=== PATIENT | female | born 1965 | race Caucasian/White ===

== ENCOUNTER 2017-05-16 15:43 | Inpatient (IN) | payer OTHER ==
[~2017-05-16] VITALS: Ht 162.6 cm; Wt 77.0 kg
--- NOTE | 2017-05-16 15:56 | ED CARDIAC/CP/PALPITATIONS ---
History of Present Illness General Chief Complaint: Dyspnea (COPD, CHF, Other) Stated Complaint: SOB O2 SAT 98 RA PULSE 150 Source: patient, family Exam Limitations: no limitations Vital Signs & Intake/Output Vital Signs & Intake/Output Vital Signs Date Time Temp Pulse Resp B/P B/P Pulse O2 O2 Flow FiO2 Mean Ox Delivery Rate 05/20 1411 98 Room Air Room Air 05/20 1406 80 05/20 0941 76 118/68 05/20 0804 84 05/20 0641 97.5 80 20 112/90 97 Room Air 05/19 2200 97.7 80 20 100/80 98 Room Air 05/19 2115 77 100/60 05/19 2019 99 Room Air 05/19 1800 78 ED Intake and Output 05/20 0000 05/19 1200 Intake Total 400 250 Output Total Balance 400 250 Intake, IV 0 Intake, Oral 400 250 Number 0 Bowel Movements Allergies Coded Allergies: NO KNOWN ALLERGIES (05/16/17) Triage Nurses Notes Reviewed? yes Onset: Gradual Duration: getting worse Timing: recent history Quality/Severity: moderate Location: substernal Radiation: jaw Activities at Onset: activity Aspirin Today: no aspirin today HPI: Patient is a 51-year-old female with past medical history of anxiety, chronic pain, depression, atrial fibrillation not on anticoagulation who presents emergency room stating that approximately 7 months ago patient was first diagnosed with atrial fibrillation at [facility] where she established rehabilitation caseworker Dr. RENE where she was prescribed diltiazem and told to take 81 mg of aspirin. Patient states that she did not like the way the diltiazem made her feel where she thought it made her symptoms of shortness of breath worse where for the past month she has discontinued this medication and patient also has been noncompliant with her aspirin. Patient was brought in by a month for 4 day history of dyspnea on exertion and worsening substernal chest heaviness Patient does admit to productive cough however she is in every day smoker Complains of jaw pain diaphoresis Denies any fevers leg swelling hemoptysis. Denies any illicit drug use denies any cocaine use patient does admit to drinking alcohol in which she took a shot of alcohol prior to arrival (NICHOLAS SCHULZ,ROSALES) Reconcile Medications Albuterol Sulfate 0.63 MG/3 ML VIAL.NEB BREATHING PROBLEMS (Reported) Alprazolam 1 MG TABLET ANXIETY (Reported) Apixaban (Eliquis) 5 MG TABLET 1 TAB PO BID AFIB Digoxin 250 MCG TABLET 1 TAB PO DAILY AFIB Diltiazem HCl (Diltiazem 12HR ER) 90 MG CAP.ER.12H 2 TAB PO BID AFIB Oxycodone HCl 15 MG TABLET 15 PAIN CONTROL (Reported) Prednisone 10 MG TABLET 1 TAB PO SI copd take 1tab on 05/21 (ALEX FRANK DO) Past History Medical History Any Pertinent Medical History? see below for history Cardiovascular: AFIB Psychiatric: anxiety, chronic pain disorder, depression Surgical History Surgical History: non-contributory Psychosocial History Who do you live with Spouse Services at Home None What is your primary language [place] Family History Hx Contributory? No (ROSALES VILLANUEVA) Review of Systems Review of Systems Constitutional: Reports: see HPI, chills. Denies: fever. EENTM: Reports: no symptoms. Respiratory: Reports: see HPI, cough, short of breath. Cardiovascular: Reports: see HPI, chest pain. GI: Reports: no symptoms. Genitourinary: Reports: no symptoms. Musculoskeletal: Reports: no symptoms. Skin: Reports: no symptoms. Neurological/Psychological: Reports: no symptoms. Hematologic/Endocrine: Reports: no symptoms. Immunologic/Allergic: Reports: no symptoms. All Other Systems: Reviewed and Negative (ROSALES VILLANUVEA) Physical Exam Physical Exam General Appearance: anxious Head: atraumatic Eyes: Bilateral: normal appearance. Ears, Nose, Throat: hearing grossly normal Respiratory: chest non-tender, no respiratory distress, wheezing Cardiovascular: tachycardia, irregularly irregular Gastrointestinal: normal bowel sounds, soft, non-tender Extremities: normal inspection, normal capillary refill, no edema Neurologic/Psych: no motor/sensory deficits, awake, alert, oriented x 3 Skin: intact, normal color, warm/dry Core Measures ACS in differential dx? Yes Severe Sepsis Present: No Septic Shock Present: No (ROSALES VILLANUEVA) Progress Differential Diagnosis: AMI, aortic dissection, atrial fibrillation, cholecystitis, CHF/pulm edema, costochondritis, hyperkalemia, hypovolemia, hyperthyroid, hyperventilation, intracranial hemorrhage, musculoskeletal pain, myocarditis, pancreatitis, pericarditis, pneumonia, pneumothorax, PSVT, pulmonary embolism, PUD/GERD, PVCs/PACs, respiratory failure, rib fracture, sepsis, unstable angina, V-fib/V-Tach, WPW syndrome Plan of Care: Orders Procedure Date/time Status Discharge Patient 05/20 UNK Active Patient on initial examination was noted to have rapid A. fib ekg monitor tech placed patient was given supplemental oxygen Cardizem was ordered IV. Dr. FRANK was aware Patient's initial blood pressure was stable, patient was given IV 10 mg of diltiazem with no response of 160-150 beats per minute. Patient then was given IV diltiazem 5 mg with no response and then an IV diltiazem another 5 mg with no response. Patient then was given IV diltiazem drip. Patient was administered prophylactic aspirin Dr. Smith consult on patient in the emergency room and advised to give heparinization to patient and also advised 20 mg IV of diltiazem and continue with 5 mL per hour of diltiazem drip. Patient also had audible wheezing on exam and patient will be treated for COPD however nebulizers were held due to significant tachycardia. CT scan was resulted showing no concerns of pulmonary embolism. After scan was resulted I also discussed continued tachycardia of 125 250 bpm to rehabilitation caseworker Dr. Smith who advised patient to be given IV Lopressor and if no better that a 15 mL per hour drip of Cardizem may be ordered for patient. Blood pressure still normal tensive. Patient also was given IV Ativan for concerns of alcohol dependency (NICHOLAS SCHULZ,ROSALES) Diagnostic Imaging: Viewed by Me: CT Scan. Radiology Impression: SEE COMMENTS Initial ED EKG: AFIB, 163 BPM IRREGULARLY IRREGULAR Comments: PATIENT: NISREEN ACEVEDO PRESENT AGE: 51 PATIENT ACCOUNT NO: [id number] : 63 LOCATION: [facility] ORDERING PHYSICIAN: ROSALES SCHULZ SERVICE DATE: 05/16/17 EXAM TYPE: CAT - CTA CHEST-PULMONARY EMBOLISM EXAMINATION: CT ANGIOGRAM OF THE CHEST WITH AND WITHOUT CONTRAST (CT PULMONARY ANGIOGRAM FOR PE) CLINICAL INFORMATION: Elevated d-dimer. COMPARISON: None. TECHNIQUE: Prior to contrast administration, noncontrast localization images were obtained. Subsequently, multidetector volumetric imaging was performed from the thoracic inlet to below the diaphragms following the administration of 89 mL Optiray 350 intravenous contrast. No contrast reaction reported. Sagittal, coronal, and MIP oblique sagittal reformatted images were obtained on the CT workstation, uploaded to PACS, and reviewed. Total exam dose-length product 383 mGy-cm. FINDINGS: QUALITY OF STUDY/CONTRAST BOLUS: Satisfactory. PULMONARY ARTERIES: Pulmonary arterial tree is well-opacified without filling defects to suggest pulmonary emboli. Main pulmonary artery is dilated up to 4.4 cm in cross-section at the level of the ascending aorta. This extends into the left main pulmonary artery, right pulmonary artery does not appear significantly dilated findings are indeterminate in etiology. Question asymmetric pulmonary hypertension? THORACIC AORTA: There is no dissection or aneurysm. LUNG:There is appearing pulmonary nodules are identified to suggest primary malignancy or metastatic disease. No focal infiltrates are seen. PLEURA: There are small bilateral pleural effusions. With subsegmental basilar atelectasis. MEDIASTINUM: There is a small node identified in the right hilum measuring 2.4 x 1.6 cm age and etiology indeterminate. In addition, there are scattered small mediastinal lymph nodes, some of which demonstrates some calcifications the largest in the subcarinal region measuring 11 mm AP dimension. These are nonspecific. A small amount of lymphoid tissue is identified in the left hilum. Findings are age and etiology indeterminate and could be related to previous granulomatous exposure given some of the calcifications associated near or within these nodes. The main pulmonary artery is dilated measuring 4cm in transverse dimension at the level of the ascending aorta. Findings suggest underlying pulmonary artery hypertension. Findings are somewhat asymmetrically involving the left pulmonary artery rather than right. CHEST WALL/AXILLA: Right breast is smaller than the left suggesting a previous lumpectomy and a history of breast cancer. There is no axillary adenopathy. OSSEOUS STRUCTURES: No aggressive appearing osseous lesions are identified to suggest metastatic disease. UPPER ABDOMEN: Unremarkable. IMPRESSION: 1. No evidence of pulmonary embolism. 2. There is an enlarged right hilar lymph node with other shotty under 1 cm short axis dimension mediastinal and left hilar nodes. Other smaller shotty nodes contain calcifications suggesting previous granulomatous exposure. 3. Small bilateral pleural effusions 4. Fusiform dilatation of the main pulmonary artery extending into the left main is etiology indeterminate. Echocardiogram is recommended on a nonurgent basis to further evaluate. 5. Probable post lumpectomy changes right breast, question history of breast cancer? VTE: Negative.. DICTATED BY: TATI MARTINEZ MD DATE/TIME DICTATED:05/16/171925 BAR TURNER:LEANNA DATE/TIME TRANSCRIBED:05/16/171925 (ROSALES VILLANUEVA) Departure Departure Disposition: STILL A PATIENT Condition: Critical Clinical Impression Primary Impression: Rapid atrial fibrillation Secondary Impressions: Chest pain, COPD (chronic obstructive pulmonary disease) Referrals: PATIENT HAS NO PRIMARY CARE DR (PCP/Family) Departure Forms: Customer Survey General Discharge Information Admission Note Spoke With: ALMA BARTHOLOMEW MD Documentation of Exam: Documentation of any treatments & extenuating circumstances including Concerns Regarding Discharge (functional status, medication knowledge or non-compliance, living conditions, etc.) that warrant an admission rather than observation: [ Discussed patient with who agrees with telemetry admission for concerns of rapid atrial fibrillation and COPD in which patient requires cardiology consultation, telemetry monitoring, IV diltiazem, IV steroids, POSSIBLE ECHO/HAN. Outpatient treatment due to critical findings of significant tachycardia and atrial fibrillation would be medically harmful] (ROSALES VILLANUEVA) Departure Prescriptions: Current Visit Scripts Prednisone 1 TAB PO SI #1 TAB take 1tab on 05/21 Digoxin 1 TAB PO DAILY #30 TAB Apixaban (Eliquis) 1 TAB PO BID #60 TAB Diltiazem HCl (Diltiazem 12HR ER) 2 TAB PO BID #120 PA/PUMPER GAGER APPRENTICE Co-Sign Statement Statement: ED Attending supervision documentation- [X] I saw and evaluated the patient. I have also reviewed all the pertinent lab results and diagnostic results. I agree with the findings and the plan of care as documented in the PA's/PUMPER GAGER APPRENTICE's documentation. [] I have reviewed the ED Record and agree with the PA's/PUMPER GAGER APPRENTICE's documentation. [] Additions or exceptions (if any) to the PAs/PUMPER GAGER APPRENTICE's note and plan are summarized below: [] (ALEX FRANK DO) Critical Care Note Critical Care Note Critical Care Time: 75-104 min (ROSALES VILLANUEVA) Admission Note Spoke With: ALMA BARTHOLOMEW MD Documentation of Exam: Documentation of any treatments & extenuating circumstances including Concerns Regarding Discharge (functional status, medication knowledge or non-compliance, living conditions, etc.) that warrant an admission rather than observation: [ Discussed patient with who agrees with telemetry admission for concerns of rapid atrial fibrillation and COPD in which patient requires cardiology consultation, telemetry monitoring, IV diltiazem, IV steroids, POSSIBLE ECHO/HAN. Outpatient treatment due to critical findings of significant tachycardia and atrial fibrillation would be medically harmful] Critical Care Note Critical Care Note Critical Care Time: 75-104 min
--- NOTE | 2017-05-16 16:00 | NUR ---
RECEIVED 51 YO FEMALE C/O WORSENING SHORTNESS OF BREATH X 4 DAYS WITH CHEST PRESSURE AND NECK PAIN. EKG DONE PRIOR TO TRIAGE. EKG SHOWS AIB WITH RVR, HR 163. PT WITH HX OF AFIB AND COPD.
--- NOTE | 2017-05-16 16:19 | NUR ---
PT TO ROOM17 BY BERNARDO, ZEUS PETERSON AND MD MONIKA TO BEDSIDE FOR PT EVAL. IV EST, PT MEDICATED WITH CARDIZEM 10MG IV PER ORDER. BP 161/93, HR 160'S. BLOOD DRAWN AND SENT TO LAB-[facility],MICHELLE [facility].
[2017-05-16 16:24] LABS: ABSOLUTE BASOPHIL COUNT 0.1 /CUMM (0.0-0.2); ABSOLUTE EOSINOPHIL COUNT 0.2 /CUMM (0.0-0.7); ABSOLUTE GRANULOCYTE CT 5.5 /CUMM (1.4-6.5); ABSOLUTE MONOCYTE COUNT 1.1 /CUMM (0.10-0.60); BASOPHIL % 0.8 % (0.0-2.0); GRANULOCYTE % 62.3 % (42.2-75.2); HEMATOCRIT 48.6 % (37-47); MEAN CORPUSCULAR HGB 31.2 PG (27.0-31.0); MEAN CORPUSCULAR VOLUME 94.7 FL (81.0-99.0); MEAN PLATELET VOLUME 8.4 FL (7.4-10.4); PLATELET COUNT 211 /CUMM (130-400); RBC DISTRIBUTION WIDTH 14.3 % (11.5-14.5); RED BLOOD CELL CT 5.13 /CUMM (4.20-5.40); WHITE BLOOD CELL COUNT 8.8 /CUMM (4.8-10.8)
--- NOTE | 2017-05-16 16:34 | NUR ---
2 DOSES OF CARDIZEM 5MG ADMINISTERED WITH SLIGHT HR IMPROVEMENT 140'S-150'S. BP 142/60. CARDIZEM DRIP 125MG/125ML INITIATED AT 5MG/HR PER EMAR. PT MEDICATED WITH ASPIRINE AND SOLUMEDROL PER EMAR. WCTM.
[2017-05-16 16:35] LABS: PT 11.5 SEC (9.4-12.5); PTT 29 SEC (25-37)
--- NOTE | 2017-05-16 16:47 | History & Physical ---
BOB POWELL MD 05/16/17 1640: General Information and HPI MD Statement: I have seen and personally examined NISREEN ACEVEDO and documented this H&P. The patient is a 51 year old F who presented with a patient stated chief complaint of []. Source of Information: patient, old records Exam Limitations: no limitations History of Present Illness: Patient is a 51-year-old female presented with chief complaints of gradually progressive shortness of breath along with chest pain since last 4 days. Past medical history - Atrial fibrillation not on any anticoagulation (7 months) -Non compliant with medication Chronic smoker Chronic pain disorder Anxiety Depression Past History Travel History Traveled to [place] past 21 day No Medical History Neurological: NONE Cardiovascular: AFIB Respiratory: asthma, COPD, emphysema Gastrointestinal: GERD Hepatic: NONE Renal: NONE Musculoskeletal: NONE Psychiatric: anxiety, chronic pain disorder, depression Endocrine: NONE Blood Disorders: NONE Cancer(s): NONE Surgical History Surgical History: non-contributory Past Family/Social History Psychosocial History Services at Home: None Assessment/Plan Assessment: Vital signs at the time of admission -temperature 97.8, pulse was 60, respiratory rate 24, blood pressure 148/71, SPO2 97% on room air In the emergency department she was found to have atrial fibrillation with rapid ventricular rate and heart rate was 163. So she was given Cardizem 10 milligrams , which did not show any response so she was started on Cardizem drip. QIANA GRIFFIN 05/16/17 1802: General Information and HPI Allergies/Medications Allergies: Coded Allergies: NO KNOWN ALLERGIES (05/16/17)
--- NOTE | 2017-05-16 17:32 | NUR ---
PT EVALUATED BY . CARDIZEM 20MG IV ADMINISTERED PER ORDER.
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
--- NOTE | 2017-05-16 18:07 | NUR ---
HEPARIN BOLUS ADMINISTERED PER EMAR. HEPARIN DRIP [id number] IN 500ML 1/2NS INITIATED AT 26ML/HR. DRIP VERIFIED BY ELISA ROBERTS. VSS.
--- NOTE | 2017-05-16 18:16 | NUR ---
PT MEDICATED WITH ATIVAN IV NOW FOR ANXIETY
--- NOTE | 2017-05-16 18:18 | NUR ---
BREATHING TX HELD DUE TO HR OF 110-140, PER ROSALES PETERSON
--- NOTE | 2017-05-16 19:22 | NUR ---
PT TO AND FROM CAT SCAN BY STRETCHER. HR 100-120'S. BP 119/69. RESP CALLED FOR VERA PER ZEUS PETERSON ORDER. FOOD PROVIDED TO PT.
--- NOTE | 2017-05-16 20:27 | CT SCAN REPORT ---
EXAMINATION: CT ANGIOGRAM OF THE CHEST WITH AND WITHOUT CONTRAST (CT PULMONARY ANGIOGRAM FOR PE) CLINICAL INFORMATION: Elevated d-dimer. COMPARISON: None. TECHNIQUE: Prior to contrast administration, noncontrast localization images were obtained. Subsequently, multidetector volumetric imaging was performed from the thoracic inlet to below the diaphragms following the administration of 89 mL Optiray 350 intravenous contrast. No contrast reaction reported. Sagittal, coronal, and MIP oblique sagittal reformatted images were obtained on the CT workstation, uploaded to PACS, and reviewed. Total exam dose-length product 383 mGy-cm. FINDINGS: QUALITY OF STUDY/CONTRAST BOLUS: Satisfactory. PULMONARY ARTERIES: Pulmonary arterial tree is well-opacified without filling defects to suggest pulmonary emboli. Main pulmonary artery is dilated up to 4.4 cm in cross-section at the level of the ascending aorta. This extends into the left main pulmonary artery, right pulmonary artery does not appear significantly dilated findings are indeterminate in etiology. Question asymmetric pulmonary hypertension? THORACIC AORTA: There is no dissection or aneurysm. LUNG:There is appearing pulmonary nodules are identified to suggest primary malignancy or metastatic disease. No focal infiltrates are seen. PLEURA: There are small bilateral pleural effusions. With subsegmental basilar atelectasis. MEDIASTINUM: There is a small node identified in the right hilum measuring 2.4 x 1.6 cm age and etiology indeterminate. In addition, there are scattered small mediastinal lymph nodes, some of which demonstrates some calcifications the largest in the subcarinal region measuring 11 mm AP dimension. These are nonspecific. A small amount of lymphoid tissue is identified in the left hilum. Findings are age and etiology indeterminate and could be related to previous granulomatous exposure given some of the calcifications associated near or within these nodes. The main pulmonary artery is dilated measuring 4cm in transverse dimension at the level of the ascending aorta. Findings suggest underlying pulmonary artery hypertension. Findings are somewhat asymmetrically involving the left pulmonary artery rather than right. CHEST WALL/AXILLA: Right breast is smaller than the left suggesting a previous lumpectomy and a history of breast cancer. There is no axillary adenopathy. OSSEOUS STRUCTURES: No aggressive appearing osseous lesions are identified to suggest metastatic disease. UPPER ABDOMEN: Unremarkable. IMPRESSION: 1. No evidence of pulmonary embolism. 2. There is an enlarged right hilar lymph node with other shotty under 1 cm short axis dimension mediastinal and left hilar nodes. Other smaller shotty nodes contain calcifications suggesting previous granulomatous exposure. 3. Small bilateral pleural effusions 4. Fusiform dilatation of the main pulmonary artery extending into the left main is etiology indeterminate. Echocardiogram is recommended on a nonurgent basis to further evaluate. 5. Probable post lumpectomy changes right breast, question history of breast cancer? VTE: Negative..
--- NOTE | 2017-05-16 21:11 | NUR ---
PT RESTING WELL IN RM. FAMILY PRESENT AT BEDSIDE. DRIPS INFUSING ORDERED W/O ADVERSE REACTION. VITAL SIGNS STABLE. CONTINUOUS MONITORING MAINTAINED.
--- NOTE | 2017-05-16 21:53 | NUR ---
PT MEDICATED WITH OXYCODONE PER EMAR FOR CHRONIC PAIN.
--- NOTE | 2017-05-16 21:54 | NUR ---
CARDIZEM DRIP TITRATED TO 7ML/RH PER ZEUS PETERSON ORDER. PT REMAINES AFIB, HR 110-140'S.
[2017-05-16 22:20] VITALS: BP 128/91
--- NOTE | 2017-05-16 22:21 | NUR ---
LOPRESSOR ADMINISTERED PER EMAR, HR 130-140'S BP 128/91 HOUSE STAFF AT BEDSIDE FOR PT EVAL.
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
[2017-05-16] MEDS ORDERED: ALPRAZOLAM1 M2 (23:00)
[2017-05-16] MEDS ORDERED: OXYCODONE HCL15 M1 (23:00)
[2017-05-16] MEDS ORDERED: ALBUTEROL0.63 MG/1 (23:01)
--- NOTE | 2017-05-16 23:05 | NUR ---
BED 175
--- NOTE | 2017-05-16 23:57 | NUR ---
REPORT GIVEN TO ELISA GOLDMAN.
--- NOTE | 2017-05-17 | NUR ---
[facility] CALLED FOR MEDICATIONS
--- NOTE | 2017-05-17 00:30 | RADIOLOGY REPORT ---
EXAMINATION: XR CHEST CLINICAL INFORMATION: Congestive heart failure. Pneumonia. Shortness of breath. COMPARISON: CT of chest today. TECHNIQUE: Chest portable single view AP. 11:18 PM FINDINGS: No acute abnormality. Lungs are clear. No pulmonary vascular congestion or pleural effusion. Cardiac size not optimally assessed on AP portable chest x-ray. IMPRESSION: No acute abnormality.
[2017-05-17 01:52] VITALS: BP 106/80
[2017-05-17 02:02] LABS: PTT 105 SEC (25-37)
--- NOTE | 2017-05-17 04:00 | NUR ---
LATE ENTRY PT ADMITTED FROM ER VIA STRETCHER . ORIENTED TO ROOM CALL TORO ETC. A/OX 3. 2L NC. AFIB ON THE MONITOR. HEPARIN GTT/CARIDIZEM GTT RUNNING ORDERED. HEPARIN GTT STOPPED PER PROTOCOL, CRITICAL LAB RESULT PTT-105. RATE DECREASED ORDERED. NEXT PTT 0900. WILL CONTINUE TO MONITOR.
--- NOTE | 2017-05-17 06:06 | Admission Certification ---
Admission Certification Certification Statement - As attending physician, I certify that at the time of - admission, based on clinical presentation, severity of - symptoms, need for further diagnostic testing and - therapeutic interventions, and risk of adverse outcomes - without in-hospital treatment, in my clinical assessment, - this patient requires an acute hospital stay for a minimum - of two nights or longer. I have also considered psychsocial - factors such as support system, advanced age, financial - issues, cognitive issues, and failed out-patient treatments, - past re-admission history, safety of patient, and lack of - compliance as applicable. Specific rationale supporting this admission is: A. fib with RVR, COPD exacerbation
[2017-05-17 08:00] VITALS: BP 100/80
--- NOTE | 2017-05-17 08:38 | PN- Housestaff ---
ROBERTO PAREDES 05/17/17 0838: Subjective Follow-up For: A-FIB WITH RVR POSSIBLE COPD EXACERBATION CHEST PAIN Complaints: pain scale (0-10) Tele-Events Since Last Visit: PATIENT IS IN A-FIB, RATE 115-133 NO ACUTE EVENTS OVERNIGHT Subjective: PATIENT IS ALERT, AWAKE, ORIENTED X 3. PATIENT REPORTED SOB X 4 DAYS, CHEST DISCOMFORT IN ED. NO ACUTE EVENTS OVERNIGHT. DENIES ANY CHEST PAIN, SOB, PALPITATIONS, DIAPHORESIS. Review of Systems Constitutional: Denies: chills, diaphoresis, fever. Objective Last 24 Hrs of Vital Signs/I&O Vital Signs Date Time Temp Pulse Resp B/P B/P Pulse O2 O2 Flow FiO2 Mean Ox Delivery Rate 05/17 1014 99 Room Air 05/17 0800 97.6 130 20 100/80 98 Room Air 05/17 0152 98.6 125 20 106/80 97 Nasal Cannula 05/17 0049 Nasal 2.0L Cannula 05/16 2313 120 18 117/82 98 Nasal 2.0L Cannula 05/16 2245 130 125/86 05/16 2221 97.5 141 20 125/89 05/16 2221 140 18 128/91 97 Nasal 2.0L Cannula 05/16 2220 97.6 140 18 128/91 05/16 2108 97.5 141 20 125/89 97 Nasal 2.0L Cannula 05/16 1923 110 18 119/69 97 Nasal 2.0L Cannula 05/16 1808 135 18 114/70 97 Nasal 2.0L Cannula 05/16 1730 97.3 148 18 142/60 05/16 1634 148 18 142/60 99 Nasal 2.0L Cannula 05/16 1632 97.3 158 18 142/60 05/16 1630 97.3 162 18 161/93 05/16 1628 162 18 161/93 98 Nasal 2.0L Cannula 05/16 1625 99 Nasal 2.0L Cannula 05/16 1619 97.3 162 18 161/93 05/16 1558 97.3 160 24 148/71 97 Room Air Intake & Output 05/17 1600 05/17 0800 05/17 0000 Intake Total 380 Output Total 400 Balance -20 Intake, IV 260 Intake, Oral 120 Output, Urine 400 Patient 170 lb Weight Physical Exam General Appearance: Alert, Oriented X3, Cooperative, No Acute Distress Skin: No Rashes HEENT: Atraumatic Neck: No JVD Lymphatic: Cervical nl Cardiovascular: Normal S1, Normal S2, IRREGULAR RATE Lungs: Normal Air Movement Abdomen: Normal Bowel Sounds, Soft, No Tenderness Extremities: No Clubbing, No Cyanosis, No Edema Vascular: Pulses Symmetrical Current Medications: Current Medications Sig/Ekta Start time Last Medication Dose Route Stop Time Status Admin Acetaminophen 650 MG Q6P PRN 05/16 2300 AC PO Albuterol Sulfate 3 ML Q4P PRN 05/17 1015 AC 05/17 INH 1013 Albuterol Sulfate 3 ML ONCE ONE 05/16 1615 DC 05/16 INH 05/16 1616 2016 Alprazolam 0.5 MG ONCE ONE 05/17 0445 DC 05/17 PO 05/17 0446 0455 Aspirin 0 .STK-MED ONE 05/16 1647 DC PO Aspirin 325 MG ONCE ONE 05/16 1615 DC 05/16 PO 05/16 1616 1634 Azithromycin 250 MG DAILY 05/16 2330 AC 05/17 PO 0124 Diltiazem HCl 120 MG BID 05/16 2300 AC 05/17 PO 0820 Diltiazem HCl 0 .STK-MED ONE 05/16 1728 DC .ROUTE Diltiazem HCl 20 MG ONCE ONE 05/16 1715 DC 05/16 IV PUSH 05/16 1716 1730 Diltiazem HCl 0 .STK-MED ONE 05/16 1640 DC IV Diltiazem HCl 5 MG ONCE ONE 05/16 1630 DC 05/16 IV PUSH 05/16 1631 1632 Diltiazem HCl 5 MG ONCE ONE 05/16 1630 DC 05/16 IV PUSH 05/16 1631 1630 Diltiazem HCl 125 MG Q12H 05/16 1630 CAN Sodium Chloride 100 ML IV Diltiazem HCl 125 MG Q24H 05/16 1630 AC 05/16 Sodium Chloride 100 ML IV 1634 Diltiazem HCl 0 .STK-MED ONE 05/16 1621 DC .ROUTE Diltiazem HCl 10 MG ONCE ONE 05/16 1615 DC 05/16 IV PUSH 05/16 1616 1619 Furosemide 0 .STK-MED ONE 05/16 2340 DC IV Furosemide 20 MG ONCE ONE 05/16 2300 DC 05/16 IV 05/16 2301 2342 Heparin Sodium 0 .STK-MED ONE 05/16 1728 DC (Porcine) .ROUTE Heparin Sodium 5,000 UNIT ONCE ONE 05/16 1715 DC 05/16 (Porcine) IV 05/16 1716 1805 Heparin Sodium 25,000 UNIT Q24H 05/16 1715 AC 05/16 (Porcine) IV 1805 Sodium Chloride 500 ML Ibuprofen 600 MG .STK-MED ONE 05/17 0125 DC PO 05/17 0126 Ibuprofen 600 MG Q6P PRN 05/16 2300 AC 05/17 PO 0124 Ipratropium [place] 2.5 ML ONCE ONE 05/16 1615 DC 05/16 INH 05/16 1616 2015 Lorazepam 0 .STK-MED ONE 05/16 2341 DC .ROUTE Lorazepam 0 Q1P PRN 05/16 2300 AC IV Lorazepam 1 MG ONCE ONE 05/16 2300 DC 05/16 IV 05/16 2301 2342 Lorazepam 0 .STK-MED ONE 05/16 1817 DC .ROUTE Lorazepam 1 MG ONCE ONE 05/16 1800 DC 05/16 IV 05/16 1801 1816 Methylprednisolone 40 MG Q12 05/16 2330 AC 05/17 IV 0124 Methylprednisolone 0 .STK-MED ONE 05/16 1648 DC .ROUTE Methylprednisolone 125 MG ONCE ONE 05/16 1615 DC 05/16 IV 05/16 1616 1634 Metoprolol Tartrate 0 .STK-MED ONE 05/16 2231 DC IV Metoprolol Tartrate 5 MG ONCE ONE 05/16 2200 DC 05/16 IV 05/16 2201 2221 Metoprolol Tartrate 25 MG ONCE ONE 05/16 1630 CAN PO 05/16 1631 Oxycodone HCl 15 MG Q8P PRN 05/16 2300 AC 05/17 PO 0630 Oxycodone HCl 15 MG ONCE ONE 05/16 2200 DC 05/16 PO 05/16 2201 2153 Oxycodone HCl 0 .STK-MED ONE 05/16 2156 DC PO Oxycodone HCl 0 .STK-MED ONE 05/16 2155 DC PO Thiamine HCl 100 MG ONCE ONE 05/17 0230 DC 05/17 Sodium Chloride 100 ML IV 05/17 0259 0349 Last 24 Hrs of Lab/Alfredito Results Last 24 Hrs of Labs/Mics: Laboratory Tests 05/17/17 0950: APTT Pending 05/17/17 0840: Anion Gap 12, Estimated GFR > 60, BUN/Creatinine Ratio 25.0, Troponin I < 0.01, CBC w Diff NO MAN DIFF REQ, RBC 4.79, MCV 95.8, MCH 31.5 H, RDW 14.7 H, MPV 9.1, Gran % 88.4 H, Lymphocytes % 8.2 L, Monocytes % 3.2, Eosinophils % 0.1, Basophils % 0.1, Absolute Granulocytes 10.0 H, Absolute Lymphocytes 0.9 L, Absolute Monocytes 0.4, Absolute Eosinophils 0, Absolute Basophils 0, PUBS MCHC 32.9 L 05/17/17 0130: Troponin I < 0.01 05/17/17 0040: APTT 105 *H 05/16/17 1909: Lactic Acid Cancelled 05/16/17 1610: D-Dimer High Sensitivty Cancelled 05/16/17 1610: Anion Gap 11, Estimated GFR > 60, BUN/Creatinine Ratio 18.3, Glucose 108 H, Lactic Acid 1.9, Calcium 9.5, Total Bilirubin 1.7 H, AST 51 H, ALT 63 H, Alkaline Phosphatase 83, Troponin I < 0.01, Hlo-U-Npikdcufdgt Pept 3390 H, Total Protein 6.5, Albumin 4.1, Globulin 2.4, Albumin/Globulin Ratio 1.7, TSH 2.160, Thyroxine (T4) 6.9, PT 11.5, INR 1.10, APTT 29, D-Dimer High Sensitivty 469 H, CBC w Diff NO MAN DIFF REQ, RBC 5.13, MCV 94.7, MCH 31.2 H, RDW 14.3, MPV 8.4, Gran % 62.3, Lymphocytes % 22.4, Monocytes % 12.5 H, Eosinophils % 2.0 , Basophils % 0.8, Absolute Granulocytes 5.5, Absolute Lymphocytes 2.0, Absolute Monocytes 1.1 H, Absolute Eosinophils 0.2, Absolute Basophils 0.1, PUBS MCHC 33.0, Serum Alcohol 70.0 Assessment/Plan Assessment: MS. LIU IS A 51YO F WITH PMH OF A-FIB, COPD, ANXIETY. CURRENTLY NONCOMPLIANT WITH CARDIZEM AND ASA. PRESENTED TO ED WITH SOB X 4 DAYS AND CHEST DISCOMFORT. #1. A-FIB Patient was diagnosed with A-FIB in 2016. She was sent home on cardiazem and ASA. Patient was noncompliant with Cardizem because she felt it exacerbated her SOB. She is currently being admitted for SOB. ECG in ED showed A-FIB with RVR- 160. Received IV Cardizem and IVP Metoprolol, HR came down to 130. * ADMITTED TO TELE FOR FURTHER MGMT OF A-FIB * ON TELE MONITORING, MONITOR SHOWING A-FIB R-130 * ON CARDIZEM DRIP, will CONTINUE CARDIZEM DRIP * GOAL HR 100-110 * PLANNING TO START ORAL CARDIZEM 120 BID * ON IV HEP DRIP for VTE PPX * WILL CHECK W COMMERCIAL ILLUSTRATOR ABOUT STARTING NEW AC * DR. Adriana LÓPEZ WAS INFORMED, WILL F/U ECHO #2 Chest pain ACS and also pulmonary embolism in the differential. CT was negative. Serial electrocardiograms and cardiac enzymes negative. Aspirin, and a beta john administered. #3 ? COPD No formal diagnosis of COPD ever made. History of smoking. Physical findings, and history of smoking likely indicate that the patient may have COPD exacerbation at this time. 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 * Ativan PRN. * Checked urine toxicology. #5. Pain management * Continue home dose of oxycodone. #6. DVT prophylaxis * IV heparin #7. Pain lower extremity * Given history of smoking, peripheral vascular disease is not completely ruled out. Outpatient evaluation with a vascular surgeon could be obtained. Problem List: 1. Rapid atrial fibrillation 2. Chest pain Pain Ratin Pain Location: N/A Pain Goal: Remain pain free Pain Plan: TYLENOL Tomorrow's Labs & Rationales: NONE
[2017-05-17 09:08] LABS: ABSOLUTE BASOPHIL COUNT 0 /CUMM (0.0-0.2); ABSOLUTE EOSINOPHIL COUNT 0 /CUMM (0.0-0.7); ABSOLUTE LYMPH COUNT 0.9 /CUMM (1.2-3.4); ABSOLUTE MONOCYTE COUNT 0.4 /CUMM (0.10-0.60); BASOPHIL % 0.1 % (0.0-2.0); EOSINOPHIL % 0.1 % (0-5); GRANULOCYTE % 88.4 % (42.2-75.2); HEMATOCRIT 45.9 % (37-47); MEAN CORPUSCULAR HGB 31.5 PG (27.0-31.0); MEAN CORPUSCULAR HGB CONC 32.9 G/DL (33.0-37.0); MEAN CORPUSCULAR VOLUME 95.8 FL (81.0-99.0); MEAN PLATELET VOLUME 9.1 FL (7.4-10.4); PLATELET COUNT 236 /CUMM (130-400); RBC DISTRIBUTION WIDTH 14.7 % (11.5-14.5); RED BLOOD CELL CT 4.79 /CUMM (4.20-5.40)
[2017-05-17 10:01] LABS: WHITE BLOOD CELL COUNT 11.4 /CUMM (4.8-10.8)
--- NOTE | 2017-05-17 10:29 | PN- Att Addend ---
Attending Addendum Attending Brief Note Patient seen and examined. Plan of care discussed with the medical team and the patient. Available lab work and radiology test reports were reviewed. Patient' s boyfriend was at the bedside. Patient appears anxious but denies any fever or chills. She continues to have mild pressure in the chest bilaterally. teletypesetter monitor shows heart rate of 144 with A. fib. Vital Signs Date Time Temp Pulse Resp B/P B/P Pulse O2 O2 Flow FiO2 Mean Ox Delivery Rate 05/17 1016 Room Air 05/17 1014 99 Room Air 05/17 0800 97.6 130 20 100/80 98 Room Air 05/17 0152 98.6 125 20 106/80 97 Nasal Cannula 05/17 0049 Nasal 2.0L Cannula 05/16 2313 120 18 117/82 98 Nasal 2.0L Cannula 05/16 2245 130 125/86 05/16 2221 97.5 141 20 125/89 05/16 2221 140 18 128/91 97 Nasal 2.0L Cannula 05/16 2220 97.6 140 18 128/91 05/16 2108 97.5 141 20 125/89 97 Nasal 2.0L Cannula 05/16 1923 110 18 119/69 97 Nasal 2.0L Cannula 05/16 1808 135 18 114/70 97 Nasal 2.0L Cannula 05/16 1730 97.3 148 18 142/60 05/16 1634 148 18 142/60 99 Nasal 2.0L Cannula 05/16 1632 97.3 158 18 142/60 05/16 1630 97.3 162 18 161/93 05/16 1628 162 18 161/93 98 Nasal 2.0L Cannula 05/16 1625 99 Nasal 2.0L Cannula 05/16 1619 97.3 162 18 161/93 05/16 1558 97.3 160 24 148/71 97 Room Air Intake & Output 05/17 1600 05/17 0800 05/17 0000 Intake Total 380 Output Total 400 Balance -20 Intake, IV 260 Intake, Oral 120 Output, Urine 400 Patient 170 lb Weight Exam: General: Patient awake alert oriented without any distress but anxious CVS: S1 plus S2 without any murmur or gallops Chest: Few scattered crepitation without any wheeze. There is no respiratory distress. 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 alert oriented without any focal neuro deficit and follows command appropriately Extremities: No edema; no clubbing or cyanosis noted Laboratory Tests 05/17 05/17 05/17 0950 0840 0130 Chemistry Sodium (137 - 145 mmol/L) 137 Potassium (3.5 - 5.1 mmol/L) 4.6 Chloride (98 - 107 mmol/L) 98 Carbon Dioxide (22 - 30 mmol/L) 27 Anion Gap (5 - 16) 12 BUN (7 - 17 mg/dL) 15 Creatinine (0.5 - 1.0 mg/dL) 0.6 Estimated GFR (>60 ml/min) > 60 BUN/Creatinine Ratio (7 - 25 %) 25.0 Troponin I (< 0.11 ng/ml) < 0.01 < 0.01 Coagulation APTT Pending Hematology CBC w Diff NO MAN DIFF REQ WBC (4.8 - 10.8 /CUMM) 11.4 H RBC (4.20 - 5.40 /CUMM) 4.79 Hgb (12.0 - 16.0 G/DL) 15.1 Hct (37 - 47 %) 45.9 MCV (81.0 - 99.0 FL) 95.8 MCH (27.0 - 31.0 PG) 31.5 H RDW (11.5 - 14.5 %) 14.7 H Plt Count (130 - 400 /CUMM) 236 MPV (7.4 - 10.4 FL) 9.1 Gran % (42.2 - 75.2 %) 88.4 H Lymphocytes % (20.5 - 51.1 %) 8.2 L Monocytes % (1.7 - 9.3 %) 3.2 Eosinophils % (0 - 5 %) 0.1 Basophils % (0.0 - 2.0 %) 0.1 Absolute Granulocytes (1.4 - 6.5 /CUMM) 10.0 H Absolute Lymphocytes (1.2 - 3.4 /CUMM) 0.9 L Absolute Monocytes (0.10 - 0.60 /CUMM) 0.4 Absolute Eosinophils (0.0 - 0.7 /CUMM) 0 Absolute Basophils (0.0 - 0.2 /CUMM) 0 PUBS MCHC (33.0 - 37.0 G/DL) 32.9 L 05/17 05/16 05/16 0040 1909 1610 Chemistry Lactic Acid Cancelled Coagulation APTT (25 - 37 SEC) 105 *H D-Dimer High Sensitivty Cancelled 05/16 1610 Chemistry Sodium (137 - 145 mmol/L) 136 L Potassium (3.5 - 5.1 mmol/L) 4.5 Chloride (98 - 107 mmol/L) 104 Carbon Dioxide (22 - 30 mmol/L) 20 L Anion Gap (5 - 16) 11 BUN (7 - 17 mg/dL) 11 Creatinine (0.5 - 1.0 mg/dL) 0.6 Estimated GFR (>60 ml/min) > 60 BUN/Creatinine Ratio (7 - 25 %) 18.3 Glucose (65 - 99 mg/dL) 108 H Lactic Acid (0.7 - 2.1 mmol/L) 1.9 Calcium (8.4 - 10.2 mg/dL) 9.5 Total Bilirubin (0.2 - 1.3 mg/dL) 1.7 H AST (14 - 36 U/L) 51 H ALT (9 - 52 U/L) 63 H Alkaline Phosphatase (<127 U/L) 83 Troponin I (< 0.11 ng/ml) < 0.01 Xod-F-Nroaxrpfsoj Pept (<125 pg/mL) 3390 H Total Protein (6.3 - 8.2 g/dL) 6.5 Albumin (3.5 - 5.0 g/dL) 4.1 Globulin (1.9 - 4.2 gm/dL) 2.4 Albumin/Globulin Ratio (1.1 - 2.2 %) 1.7 TSH (0.270 - 4.200 uIU/mL) 2.160 Thyroxine (T4) (4.5 - 10.9 ug/dL) 6.9 Coagulation PT (9.4 - 12.5 SEC) 11.5 INR (0.90 - 1.19) 1.10 APTT (25 - 37 SEC) 29 D-Dimer High Sensitivty (0 - 243 ng/ml) 469 H Hematology CBC w Diff NO MAN DIFF REQ WBC (4.8 - 10.8 /CUMM) 8.8 RBC (4.20 - 5.40 /CUMM) 5.13 Hgb (12.0 - 16.0 G/DL) 16.0 Hct (37 - 47 %) 48.6 H MCV (81.0 - 99.0 FL) 94.7 MCH (27.0 - 31.0 PG) 31.2 H RDW (11.5 - 14.5 %) 14.3 Plt Count (130 - 400 /CUMM) 211 MPV (7.4 - 10.4 FL) 8.4 Gran % (42.2 - 75.2 %) 62.3 Lymphocytes % (20.5 - 51.1 %) 22.4 Monocytes % (1.7 - 9.3 %) 12.5 H Eosinophils % (0 - 5 %) 2.0 Basophils % (0.0 - 2.0 %) 0.8 Absolute Granulocytes (1.4 - 6.5 /CUMM) 5.5 Absolute Lymphocytes (1.2 - 3.4 /CUMM) 2.0 Absolute Monocytes (0.10 - 0.60 /CUMM) 1.1 H Absolute Eosinophils (0.0 - 0.7 /CUMM) 0.2 Absolute Basophils (0.0 - 0.2 /CUMM) 0.1 PUBS MCHC (33.0 - 37.0 G/DL) 33.0 Toxicology Serum Alcohol (<10 MG/DL) 70.0 CTA chest 1. No evidence of pulmonary embolism. 2. There is an enlarged right hilar lymph node with other shotty under 1 cm short axis dimension mediastinal and left hilar nodes. Other smaller shotty nodes contain calcifications suggesting previous granulomatous exposure. 3. Small bilateral pleural effusions 4. Fusiform dilatation of the main pulmonary artery extending into the left main is etiology indeterminate. Echocardiogram is recommended on a nonurgent basis to further evaluate. 5. Probable post lumpectomy changes right breast, question history of breast cancer? VTE: Negative.. Chest x-ray was unremarkable Assessment * Rapid A. fib still uncontrolled * Underlying COPD * Active smoking * Elevated WBC count likely due to steroids * Mild hyponatremia improved * Abnormal LFTs * Elevated bilirubin Plan * Continue IV Cardizem and adjust to keep rate below 110 * Cardiac consult * Old records from * Continue azithromycin. We'll plan to switch to oral tomorrow * CIMD protocol * Nicotine patch * Note that patient previously was on diltiazem SR. She is noncompliant because she felt more short of breath while on the medication.
[2017-05-17 10:52] LABS: PTT 67 SEC (25-37)
--- NOTE | 2017-05-17 11:35 | PN- Cardiology ---
Subjective Subjective: The patient is feeling slightly better. However she is still short of breath. She remains in atrial fibrillation with variable rate from the low to mid 100s. She is on Cardizem drip and by mouth Cardizem as well. She has been started on IV heparin, aspirin, Lasix. Troponins are negative 3. She did have a positive alcohol level on admission. Objective Vital Signs and I&Os Vital Signs Date Time Temp Pulse Resp B/P B/P Pulse O2 O2 Flow FiO2 Mean Ox Delivery Rate 05/17 1016 Room Air 05/17 1014 99 Room Air 05/17 0800 97.6 130 20 100/80 05/17 0800 98 Room Air 05/17 0800 97.6 130 20 100/80 98 Room Air 05/17 0152 98.6 125 20 106/80 97 Nasal Cannula 05/17 0049 Nasal 2.0L Cannula 05/16 2313 120 18 117/82 98 Nasal 2.0L Cannula 05/16 2245 130 125/86 05/16 2221 97.5 141 20 125/89 05/16 2221 140 18 128/91 97 Nasal 2.0L Cannula 05/16 2220 97.6 140 18 128/91 05/16 2108 97.5 141 20 125/89 97 Nasal 2.0L Cannula 05/16 1923 110 18 119/69 97 Nasal 2.0L Cannula 05/16 1808 135 18 114/70 97 Nasal 2.0L Cannula 05/16 1730 97.3 148 18 142/60 05/16 1634 148 18 142/60 99 Nasal 2.0L Cannula 05/16 1632 97.3 158 18 142/60 05/16 1630 97.3 162 18 161/93 05/16 1628 162 18 161/93 98 Nasal 2.0L Cannula 05/16 1625 99 Nasal 2.0L Cannula 05/16 1619 97.3 162 18 161/93 05/16 1558 97.3 160 24 148/71 97 Room Air Intake & Output 05/17 1600 05/17 0805/17 0000 05/16 1600 05/16 0805/16 0000 Intake Total 380 Output Total 400 Balance -20 Intake, IV 260 Intake, Oral 120 Output, Urine 400 Patient 170 lb 170 lb Weight Weight Estimated Measurement Method Physical Exam: She is in no distress HEENT exam is normal Chest reveals mild to moderate wheezing Heart reveals irregular rhythm and no murmurs, moderate rate Extremities no edema Current Medications: Current Medications Sig/Ekta Start time Last Medication Dose Route Stop Time Status Admin Acetaminophen 650 MG Q6P PRN 05/16 2300 AC PO Albuterol Sulfate 3 ML Q4P PRN 05/17 1015 AC 05/17 INH 1013 Albuterol Sulfate 3 ML ONCE ONE 05/16 1615 DC 05/16 INH 05/16 1616 2016 Alprazolam 0.5 MG ONCE ONE 05/17 1030 DC 05/17 PO 05/17 1031 1039 Alprazolam 0.5 MG ONCE ONE 05/17 0445 DC 05/17 PO 05/17 0446 0455 Aspirin 0 .STK-MED ONE 05/16 1647 DC PO Aspirin 325 MG ONCE ONE 05/16 1615 DC 05/16 PO 05/16 1616 1634 Azithromycin 250 MG DAILY 05/16 2330 AC 05/17 PO 0124 Diltiazem HCl 120 MG BID 05/16 2300 AC 05/17 PO 0820 Diltiazem HCl 0 .STK-MED ONE 05/16 1728 DC .ROUTE Diltiazem HCl 20 MG ONCE ONE 05/16 1715 DC 05/16 IV PUSH 05/16 1716 1730 Diltiazem HCl 0 .STK-MED ONE 05/16 1640 DC IV Diltiazem HCl 5 MG ONCE ONE 05/16 1630 DC 05/16 IV PUSH 05/16 1631 1632 Diltiazem HCl 5 MG ONCE ONE 05/16 1630 DC 05/16 IV PUSH 05/16 1631 1630 Diltiazem HCl 125 MG Q12H 05/16 1630 CAN Sodium Chloride 100 ML IV Diltiazem HCl 125 MG Q24H 05/16 1630 AC 05/16 Sodium Chloride 100 ML IV 1634 Diltiazem HCl 0 .STK-MED ONE 05/16 1621 DC .ROUTE Diltiazem HCl 10 MG ONCE ONE 05/16 1615 DC 05/16 IV PUSH 05/16 1616 1619 Furosemide 0 .STK-MED ONE 05/16 2340 DC IV Furosemide 20 MG ONCE ONE 05/16 2300 DC 05/16 IV 05/16 2301 2342 Heparin Sodium 0 .STK-MED ONE 05/16 1728 DC (Porcine) .ROUTE Heparin Sodium 5,000 UNIT ONCE ONE 05/16 1715 DC 05/16 (Porcine) IV 05/16 1716 1805 Heparin Sodium 25,000 UNIT Q24H 05/16 1715 AC 05/16 (Porcine) IV 1805 Sodium Chloride 500 ML Ibuprofen 600 MG .STK-MED ONE 05/17 0125 DC PO 05/17 0126 Ibuprofen 600 MG Q6P PRN 05/16 2300 AC 05/17 PO 0124 Ipratropium Calvin 2.5 ML ONCE ONE 05/16 1615 DC 05/16 INH 05/16 1616 2014 Lorazepam 0 .STK-MED ONE 05/16 2341 DC .ROUTE Lorazepam 0 Q1P PRN 05/16 2300 AC IV Lorazepam 1 MG ONCE ONE 05/16 2300 DC 05/16 IV 05/16 2301 2342 Lorazepam 0 .STK-MED ONE 05/16 1817 DC .ROUTE Lorazepam 1 MG ONCE ONE 05/16 1800 DC 05/16 IV 05/16 1801 1816 Methylprednisolone 40 MG Q12 05/16 2330 AC 05/17 IV 1021 Methylprednisolone 0 .STK-MED ONE 05/16 1648 DC .ROUTE Methylprednisolone 125 MG ONCE ONE 05/16 1615 DC 05/16 IV 05/16 1616 1634 Metoprolol Tartrate 0 .STK-MED ONE 05/16 2231 DC IV Metoprolol Tartrate 5 MG ONCE ONE 05/16 2200 DC 05/16 IV 05/16 2201 2221 Metoprolol Tartrate 25 MG ONCE ONE 05/16 1630 CAN PO 05/16 1631 Oxycodone HCl 15 MG Q8P PRN 05/16 2300 AC 05/17 PO 0630 Oxycodone HCl 15 MG ONCE ONE 05/16 2200 DC 05/16 PO 05/16 2201 2153 Oxycodone HCl 0 .STK-MED ONE 05/16 2156 DC PO Oxycodone HCl 0 .STK-MED ONE 05/16 2155 DC PO Thiamine HCl 100 MG ONCE ONE 05/17 0230 DC 05/17 Sodium Chloride 100 ML IV 05/17 0259 0349 Results Last 48 Hrs of Labs/Mics: Laboratory Tests 05/17/17 0950: APTT 67 H 05/17/17 0840: Anion Gap 12, Estimated GFR > 60, BUN/Creatinine Ratio 25.0, Troponin I < 0.01, CBC w Diff NO MAN DIFF REQ, RBC 4.79, MCV 95.8, MCH 31.5 H, RDW 14.7 H, MPV 9.1, Gran % 88.4 H, Lymphocytes % 8.2 L, Monocytes % 3.2, Eosinophils % 0.1, Basophils % 0.1, Absolute Granulocytes 10.0 H, Absolute Lymphocytes 0.9 L, Absolute Monocytes 0.4, Absolute Eosinophils 0, Absolute Basophils 0, PUBS MCHC 32.9 L 05/17/17 0130: Troponin I < 0.01 05/17/17 0040: APTT 105 *H 05/16/17 1909: Lactic Acid Cancelled 05/16/17 1610: D-Dimer High Sensitivty Cancelled 05/16/17 1610: Anion Gap 11, Estimated GFR > 60, BUN/Creatinine Ratio 18.3, Glucose 108 H, Lactic Acid 1.9, Calcium 9.5, Total Bilirubin 1.7 H, AST 51 H, ALT 63 H, Alkaline Phosphatase 83, Troponin I < 0.01, [id number]-Yaqleutuuqb Pept 3390 H, Total Protein 6.5, Albumin 4.1, Globulin 2.4, Albumin/Globulin Ratio 1.7, TSH 2.160, Thyroxine (T4) 6.9, PT 11.5, INR 1.10, APTT 29, D-Dimer High Sensitivty 469 H, CBC w Diff NO MAN DIFF REQ, RBC 5.13, MCV 94.7, MCH 31.2 H, RDW 14.3, MPV 8.4, Gran % 62.3, Lymphocytes % 22.4, Monocytes % 12.5 H, Eosinophils % 2.0 , Basophils % 0.8, Absolute Granulocytes 5.5, Absolute Lymphocytes 2.0, Absolute Monocytes 1.1 H, Absolute Eosinophils 0.2, Absolute Basophils 0.1, PUBS MCHC 33.0, Serum Alcohol 70.0 Assessment/Plan Assessment/Plan 1The patient's heart rate is coming under control. I recommend tapering off IV Cardizem if possible. If her heart rate is persistently over 100 I would increase the Cardizem dose to 120 mg 3 times a day. I would avoid beta blockers because of the wheezing. I would continue telemetry for now and watch for alcohol withdrawal symptoms. I would keep her on heparin for another 24 hours and then discontinue heparin and start an oral anticoagulant such as Xarelto or Eliquis. Continue telemetry? Yes
[2017-05-17 15:30] VITALS: BP 100/70
[2017-05-17 16:00] VITALS: BP 100/70
[2017-05-17 21:43] VITALS: BP 108/60
[2017-05-17 23:12] LABS: PTT 66 SEC (25-37)
[2017-05-18 07:00] VITALS: BP 100/80
--- NOTE | 2017-05-18 08:51 | PN- Housestaff ---
Subjective Follow-up For: A-FIB WITH RVR POSSIBLE COPD EXACERBATION CHEST PAIN Complaints: pain scale (0-10) Tele-Events Since Last Visit: Patient is in A-fib, R 130-141, PVCs No acute event overnight Subjective: PATIENT IS ALERT, AWAKE, ORIENTED X 3. PATIENT REPORTED SOB X 4 DAYS, CHEST DISCOMFORT IN ED. DENIES ANY CHEST PAIN, SOB, PALPITATIONS, DIAPHORESIS Review of Systems Constitutional: Denies: chills, diaphoresis, fever. Objective Last 24 Hrs of Vital Signs/I&O Vital Signs Date Time Temp Pulse Resp B/P B/P Pulse O2 O2 Flow FiO2 Mean Ox Delivery Rate 05/18 07 98.7 113 20 100/80 95 Room Air 05/18 0600 113 100/80 05/17 2143 97.4 80 18 108/60 98 Room Air 05/17 2025 110 100/70 05/17 1800 110 / 1600 97.5 81 20 100/70 / 1600 99 Room Air 05/17 1530 97.5 81 20 100/70 99 Room Air 05/17 1400 94 / 1200 89 05/17 1016 Room Air 05/17 1014 99 Room Air 05/17 1000 112 Intake & Output 05/18 1600 / 0800 05/18 0000 Intake Total 200 600 Output Total Balance 200 600 Intake, Oral 200 600 Physical Exam General Appearance: Alert, Oriented X3, Cooperative, No Acute Distress HEENT: Atraumatic, PERRLA Neck: No JVD Cardiovascular: Normal S1, Normal S2, Irregular rate Abdomen: Normal Bowel Sounds, Soft, No Tenderness Current Medications: Current Medications Sig/Ekta Start time Last Medication Dose Route Stop Time Status Admin Acetaminophen 650 MG Q6P PRN 05/16 2300 AC PO Albuterol Sulfate 3 ML Q4P PRN 05/17 1015 AC 05/17 INH 1013 Alprazolam 0.5 MG ONCE ONE 05/17 2000 DC 05/17 PO 05/17 Alprazolam 0.5 MG ONCE ONE 05/17 1030 DC 05/17 PO 05/17 1031 1039 Apixaban 5 MG BID 05/18 1000 AC PO Azithromycin 250 MG DAILY 05/16 2330 AC 05/17 PO 0124 Diltiazem HCl 120 MG TID 05/17 2200 CAN PO Diltiazem HCl 120 MG Q8 05/17 2000 AC 05/18 PO 0600 Diltiazem HCl 120 MG BID 05/16 2300 DC 05/17 PO 0820 Diltiazem HCl 125 MG Q24H 05/16 1630 AC 05/17 Sodium Chloride 100 ML IV 1215 Heparin Sodium 25,000 UNIT Q24H 05/16 1715 AC 05/17 (Porcine) IV 1620 Sodium Chloride 500 ML Ibuprofen 600 MG Q6P PRN 05/16 2300 DC 05/17 PO 0124 Lorazepam 0 Q1P PRN 05/16 2300 AC IV Methylprednisolone 40 MG Q12 05/16 2330 AC 05/17 IV 2027 Nicotine 21 MG DAILY 05/17 1245 AC TOP Oxycodone HCl 15 MG Q8P PRN 05/16 2300 AC 05/17 PO 2208 Last 24 Hrs of Lab/Alfredito Results Last 24 Hrs of Labs/Mics: Laboratory Tests 05/17/17 2238: APTT 66 H 05/17/17 0950: APTT 67 H Lines/Diet/Fluids Lines: peripheral lines Assessment/Plan Assessment: MS. LIU IS A 51YO F WITH PMH OF A-FIB, COPD, ANXIETY. CURRENTLY NONCOMPLIANT WITH CARDIZEM AND ASA. PRESENTED TO ED WITH SOB X 4 DAYS AND CHEST DISCOMFORT. #1. A-FIB Patient was diagnosed with A-FIB in 2016. She was sent home on cardiazem and ASA. Patient was noncompliant with Cardizem because she felt it exacerbated her SOB. She is currently being admitted for SOB. ECG in ED showed A-FIB with RVR- 160. Received IV Cardizem and IVP Metoprolol, HR came down to 130. * TELE FOR FURTHER MGMT OF A-FIB * DR. Adriana LÓPEZ WAS INFORMED, WILL F/U ECHO * ON CARDIZEM DRIP AND CARDIZEM PO * GOAL HR 100-110 * HEPARIN DISCONTINUED * STARTING NEW AC-ELIQUIS #2 Chest pain ACS and also pulmonary embolism in the differential. CT was negative. Serial electrocardiograms and cardiac enzymes negative. Aspirin, and a beta john administered. #3 ? COPD No formal diagnosis of COPD ever made. History of smoking. Physical findings, and history of smoking likely indicate that the patient may have COPD exacerbation at this time. * TRC nebs * IV Solu-Medrol D/C, WILL START PO PREDNISONE, WILL TAPER * Azithromycin * Patient will f/u [facility] collections agent as outpatient #4 Alcohol use * Monitoring the patient using CIWA protocol. * Ativan PRN. #5. Pain management * Continue home dose of oxycodone. #6. DVT prophylaxis * ELIQUIS #7. Pain lower extremity * Given history of smoking, peripheral vascular disease is not completely ruled out. Outpatient evaluation with a vascular surgeon could be obtained. Problem List: 1. Rapid atrial fibrillation 2. Chest pain Pain Ratin Pain Location: N/A Pain Goal: Remain pain free Pain Plan: N/A Tomorrow's Labs & Rationales: NONE NONE
--- NOTE | 2017-05-18 10:45 | PN- Att Addend ---
Attending Addendum Attending Brief Note Patient seen and examined. Plan of care discussed with the medical team and the patient. Available lab work and radiology test reports were reviewed. Patient appears anxious but denies any fever or chills. Overall she feels better than yesterday. She denies any chest pain today. 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 Vital Signs Date Time Temp Pulse Resp B/P B/P Pulse O2 O2 Flow FiO2 Mean Ox Delivery Rate 05/18 07 98.7 113 20 100/80 95 Room Air 05/18 0600 113 100/80 / 2143 97.4 80 18 108/60 98 Room Air 05/17 2025 110 100/70 / 1800 110 / 1600 97.5 81 20 100/70 / 1600 99 Room Air 05/17 1530 97.5 81 20 100/70 99 Room Air 05/17 1400 94 / 1200 89 Intake & Output 05/18 1600 05/18 0800 05/18 0000 Intake Total 200 600 Output Total Balance 200 600 Intake, Oral 200 600 Exam: General: Patient awake alert oriented without any distress but anxious CVS: S1 plus S2 without any murmur or gallops Chest: Few scattered crepitation without any wheeze. There is no respiratory distress. 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 fib still uncontrolled * Underlying COPD * Active smoking * Elevated WBC count likely due to steroids * Mild hyponatremia improved * Abnormal LFTs * Elevated bilirubin Plan * Continue IV Cardizem and adjust to keep rate below 110; continue oral Cardizem * Cardiac consult note reviewed * Continue eliquis and discontinue heparin * Obtain Old records from [facility] * Continue azithromycin by mouth * Continue prednisone * CIWA protocol * Continue Nicotine patch * Increase simulation * Possible discharge for tomorrow; please prepare CMR
[2017-05-18] MEDS ORDERED: PREDNISONE10 M2 PO (11:10)
[2017-05-18] MEDS ORDERED: ELIQUIS5 M1 PO (11:10)
[2017-05-18] MEDS ORDERED: CARDIZEM60 M1 PO (11:10)
[2017-05-18] MEDS ORDERED: AZITHROMYCIN250 M1 PO (11:10)
--- NOTE | 2017-05-18 11:15 | Patient Discharge Instructions ---
Discharge Instructions General Discharge Information You were seen/treated for: atrial fibrillation with RVR. You had these procedures: NONE Special Instructions: PLEASE F/U PCP IN 1 WEEK AFTER DISCHARGE. PLEASE F/U [employer]PLICATION [employer]EL[employer] IN 1-2 WEEKS AFTER DISCHARGE. PLEASE CONTINUE TO TAKE CARDIZEM AND ELIQUS. COMPLETE PREDNISONE TAPER Diet Continue normal diet: Yes Activity Full Activity/No Limits: Yes Acute Coronary Syndrome Inclusion Criteria At DC or during hospital stay patient has or had the following: ACS DIAGNOSIS No Discharge Core Measures Meds if any: Prescribed or Continued at Discharge Meds if any: NOT Prescribed or Continued at Discharge Congestive Heart Failure Inclusion Criteria At DC or during hospital stay patient has or had the following: CHF DIAGNOSIS No Discharge Core Measures Meds if any: Prescribed or Continued at Discharge Meds if any: NOT Prescribed or Continued at Discharge Cerebrovascular accident Inclusion Criteria At DC or during hospital stay patient has or had the following: CVA/TIA Diagnosis No Discharge Core Measures Meds if any: Prescribed or Continued at Discharge Meds if any: NOT Prescribed or Continued at Discharge Venous thromboembolism Inclusion Criteria VTE Diagnosis No VTE Type NONE VTE Confirmed by (Test) NONE Discharge Core Measures - Per Current guidelines, there needs to be overlap - treatment for the first 5 days of Warfarin therapy. - If discharged on Warfarin prior to 5 days of - overlap therapy, the patient will need to be - assessed for post discharge needs including - *Post discharge parental anticoagulation - *Warfarin and/or parental anticoagulation education - *Follow up date to check INR post discharge At least 5 days overlap therapy as Inpatient No Meds if any: Prescribed or Continued at Discharge Note: Overlap Therapy is Warfarin and Anticoagulant Meds if any: NOT Prescribed or Continued at Discharge
--- NOTE | 2017-05-18 12:17 | PN- Cardiology ---
Subjective Subjective: The patient is feeling better. Her heart rate is better controlled. She is now off the Cardizem drip and on 360 mg of Cardizem a day. She is also on Eliquis. Her echocardiogram was just done and on preliminary review shows reduced left ventricular systolic function, dilated atria, at least moderate mitral regurgitation, mild pulmonary hypertension. 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 Objective Vital Signs and I&Os Vital Signs Date Time Temp Pulse Resp B/P B/P Pulse O2 O2 Flow FiO2 Mean Ox Delivery Rate 05/18 08 110 / 0800 95 Room Air 05/18 0700 98.7 113 20 100/80 95 Room Air / 0600 113 100/80 / 2143 97.4 80 18 108/60 98 Room Air 05/17 2025 110 100/70 / 1800 110 / 1600 97.5 81 20 100/70 07/ 1600 99 Room Air 05/17 1530 97.5 81 20 100/70 99 Room Air 05/17 1400 94 / 1200 89 Intake & Output 05/18 1600 05/18 0800 / 0000 05/17 1600 05/17 0800 05/17 0000 Intake Total 326 807 3427 380 Output Total 400 Balance 558 633 7653 -20 Intake, IV 239 260 Intake, Oral 200 600 780 120 Output, Urine 400 Patient 170 lb Weight Physical Exam: She is in no distress HEENT exam is normal Chest is clear Heart reveals irregular rhythm and systolic murmur at apex Extremities no edema Current Medications: Current Medications Sig/Ekta Start time Last Medication Dose Route Stop Time Status Admin Acetaminophen 650 MG Q6P PRN 05/16 2300 AC PO Albuterol Sulfate 3 ML Q4P PRN 05/17 1015 AC 05/17 INH 1013 Alprazolam 0.5 MG BID PRN 05/18 0930 AC 05/18 PO 05/25 0929 0934 Alprazolam 0.5 MG ONCE ONE 05/17 2000 DC 05/17 PO 05/17 Apixaban 5 MG BID 05/18 1000 AC 05/18 PO 1022 Azithromycin 250 MG DAILY 05/16 2330 AC 05/18 PO 1022 Diltiazem HCl 120 MG TID 05/17 2200 CAN PO Diltiazem HCl 120 MG Q8 05/17 2000 AC 05/18 PO 0600 Diltiazem HCl 120 MG BID 05/16 2300 DC 05/17 PO 0820 Diltiazem HCl 125 MG Q24H 05/16 1630 DC 05/17 Sodium Chloride 100 ML IV 1215 Heparin Sodium 25,000 UNIT Q24H 05/16 1715 DC 05/17 (Porcine) IV 1620 Sodium Chloride 500 ML Ibuprofen 600 MG Q6P PRN 05/16 2300 DC 05/17 PO 0124 Lorazepam 0 Q1P PRN 05/16 2300 AC IV Methylprednisolone 40 MG Q12 05/16 2330 DC 05/17 IV 2027 Nicotine 21 MG DAILY@0 05/18 220 AC TOP Nicotine 21 MG DAILY 05/17 1245 DC 05/17 TOP 2230 Oxycodone HCl 15 MG Q8P PRN 05/16 2300 AC 05/18 PO 0934 Prednisone 40 MG DAILY 05/18 1000 AC 05/18 PO 1022 Results Last 48 Hrs of Labs/Mics: Laboratory Tests 05/18/17 1000: APTT Cancelled 05/17/17 2238: APTT 66 H 05/17/17 0950: APTT 67 H 05/17/17 0840: Anion Gap 12, Estimated GFR > 60, BUN/Creatinine Ratio 25.0, Troponin I < 0.01, CBC w Diff NO MAN DIFF REQ, RBC 4.79, MCV 95.8, MCH 31.5 H, RDW 14.7 H, MPV 9.1, Gran % 88.4 H, Lymphocytes % 8.2 L, Monocytes % 3.2, Eosinophils % 0.1, Basophils % 0.1, Absolute Granulocytes 10.0 H, Absolute Lymphocytes 0.9 L, Absolute Monocytes 0.4, Absolute Eosinophils 0, Absolute Basophils 0, PUBS MCHC 32.9 L 05/17/17 0130: Troponin I < 0.01 05/17/17 0040: APTT 105 *H 05/16/17 1909: Lactic Acid Cancelled 05/16/17 1610: D-Dimer High Sensitivty Cancelled 05/16/17 1610: Anion Gap 11, Estimated GFR > 60, BUN/Creatinine Ratio 18.3, Glucose 108 H, Lactic Acid 1.9, Calcium 9.5, Total Bilirubin 1.7 H, AST 51 H, ALT 63 H, Alkaline Phosphatase 83, Troponin I < 0.01, Kwd-N-Yhdrgjihiuf Pept 3390 H, Total Protein 6.5, Albumin 4.1, Globulin 2.4, Albumin/Globulin Ratio 1.7, TSH 2.160, Thyroxine (T4) 6.9, PT 11.5, INR 1.10, APTT 29, D-Dimer High Sensitivty 469 H, CBC w Diff NO MAN DIFF REQ, RBC 5.13, MCV 94.7, MCH 31.2 H, RDW 14.3, MPV 8.4, Gran % 62.3, Lymphocytes % 22.4, Monocytes % 12.5 H, Eosinophils % 2.0 , Basophils % 0.8, Absolute Granulocytes 5.5, Absolute Lymphocytes 2.0, Absolute Monocytes 1.1 H, Absolute Eosinophils 0.2, Absolute Basophils 0.1, PUBS MCHC 33.0, Serum Alcohol 70.0 Assessment/Plan Assessment/Plan She is off Cardizem drip and her heart rate is acceptable. Her echo as noted is consistent with tachycardia-induced cardiomyopathy, although she is not in congestive heart failure. She is on anticoagulation. There has been no evidence of alcohol withdrawal. She has less wheezing than yesterday and is now on by mouth prednisone. I recommend continuing the same treatment for now. Hopefully her LV function will improve with improvement in her heart rate. She might be considered for cardioversion either HAN directed or waiting for 3-4 weeks on anticoagulants and then cardioverting her. Continue telemetry? Yes
[2017-05-18 15:02] VITALS: BP 118/83
[2017-05-18 16:00] VITALS: BP 118/83
[2017-05-18 22:00] VITALS: BP 124/82
--- NOTE | 2017-05-19 07:05 | ECHOCARDIOGRAM REPORT ---
NISREEN ACEVEDO Age: 52 : 1965 Gender: F Exam Date: 05/18/2017 09:38 Exam Location: [address] Ht (in): 64 Wt (lb): 169 BSA: 1.88 BP: 100 / 80 Ordering Physician: QIANA GRIFFIN MD Referring Physician: James Smith MD, PhD Technologist: Rozina Kirkpatrick [facility] Room Number: 175 Indications: CARDIOMYOPATHY Rhythm: Atrial fibrillation Technical Quality: good FINDINGS Left Ventricle Mildly enlarged left ventricle with normal wall thickness. Moderately decreased systolic function with global hypokinesis. The ejection fraction is visually estimated at 40%. Right Ventricle The right ventricle is normal in size and function. Right Atrium The right atrium is mildly enlarged. Left Atrium The left atrium is moderately enlarged. The interatrial septum is intact. Mitral Valve The mitral valve is normal in structure and function. There is moderate mitral regurgitation. Aortic Valve Structurally normal aortic valve without significant sclerosis or stenosis. There is mild aortic regurgitation. Tricuspid Valve The tricuspid valve is normal in structure and function. There is mild tricuspid regurgitation. Pulmonary artery systolic pressure is mildly elevated to 45.8mmHg. Pulmonic Valve Structurally normal pulmonic valve. There is mild pulmonic regurgitation. Pericardium Normal pericardium with small effusion. No pleural effusion. Great Vessels Normal aortic root dimension. The aortic arch and great vessels are well seen and are normal. CONCLUSIONS 1. Moderately decreased EF of 40%. 2. Mild right atrial enlargement. 3. Moderate left atrial enlargement. 4. Moderate mitral regurgitation. 5. Mild tricuspid regurgitation. 6. Mild aortic regurgitation. 7. Mild pulmonic regurgitation. 8. Mild to moderate pulmonary hypertension. James Smith M.D. (Electronically Signed) Final Date: 19 May 2017 07:04 MEASUREMENTS (Male / Female) Normal Values 2D ECHO LV Diastolic Diameter PLAX 5.5 cm 4.2 - 5.9 / 3.9 - 5.3 cm LV Systolic Diameter PLAX 4.2 cm 2.1 - 4.0 cm LV Fractional Shortening PLAX 23.6 % 25 - 46 % LV Ejection Fraction 2D Teich 46.7 % IVS Diastolic Thickness 1.1 cm LVPW Diastolic Thickness 0.7 cm LV Relative Wall Thickness 0.3 RV Internal Dim ED PLAX 2.9 cm 1.9 - 3.8 cm LVOT Diameter 1.9 cm Aortic Root Diameter 3.1 cm LA Systolic Diameter LX 4.8 cm 3.0 - 4.0 / 2.7 - 3.8 cm LA Volume 73.0 cm 18 - 58 / 22 - 52 cm Ascending Aorta Diameter 3.5 cm DOPPLER AV Peak Velocity 159.0 cm/s AV Peak Gradient 10.1 mmHg AV Mean Velocity 104.0 cm/s AV Mean Gradient 5.0 mmHg AV Velocity Time Integral 34.5 cm LVOT Peak Velocity 106.0 cm/s LVOT Peak Gradient 4.5 mmHg LVOT Mean Velocity 75.2 cm/s LVOT Mean Gradient 3.0 mmHg LVOT Velocity Time Integral 19.1 cm LVOT Stroke Volume 54.2 cm AV Area Cont Eq vti 1.6 cm AV Area Cont Eq pk 1.9 cm MV Peak Velocity 153.0 cm/s MV Peak Gradient 9.4 mmHg MV Mean Velocity 82.8 cm/s MV Mean Gradient 4.0 mmHg Mitral E Point Velocity 135.0 cm/s MV PHT Velocity 161.0 cm/s MV Deceleration [place] 748.0 cm/s MV Pressure Half Time 64.6 ms MV Area PHT 3.4 cm MV Deceleration Time 177.0 ms TR Peak Velocity 299.0 cm/s TR Peak Gradient 35.8 mmHg Right Atrial Pressure 10.0 mmHg Pulmonary Artery Systolic Pressu 45.8 mmHg Right Ventricular Systolic Press 45.8 mmHg PV Peak Velocity 134.0 cm/s PV Peak Gradient 7.2 mmHg PV Mean Velocity 83.7 cm/s PV Mean Gradient 3.0 mmHg PV Velocity Time Integral 25.0 cm LV E' Lateral Velocity 8.2 cm/s Mitral E to LV E' Lateral Ratio 16.5 LV E' Septal Velocity 5.9 cm/s Mitral E to LV E' Septal Ratio 22.7
--- NOTE | 2017-05-19 08:23 | Discharge Summary ---
Visit Information Visit Dates Admission Date: 05/16/17 Discharge Date: 05/20/17 Hospital Course Course Attending Physician: ALMA BARTHOLOMEW MD Primary Care Physician: PATIENT HAS NO PRIMARY CARE DR Other Care Providers: James Rodríguez MD Consulting Request: Consulting Specialty: Cardiology Hospital Course: Ms. Magallon is a 51 yo F with a PMH of A-fib(2015), breast cancer(2005) S/P lumpectomy/radiation and anxiety depression admitted to the hospital for SOB for 4 days. Ms. Magallon reported she came to the ER because she felt SOB during exertion and rest. Her symptoms were associated with chest discomfort rated 8/10 and diaphoresis. She also reported a productive cough that became worse at the time. She is a current smoker (24-ivma-bivl) and reports alcohol use. Last drink day of admission. Her A-fib is being managed by Dr. Foster. She has been noncompliant with her medication-Cardizem for her A-fib becasue she stated it made her feel worse when she took it. On admission: vitals-temperature 97.3, pulse rate 160, respiration 24, blood pressure 148/71, pulse ox 97% on 2 L oxygen. The findings indicated no leukocytosis-WBC 8.8, hemoglobin 16.0 (likely dehydration or COPD), platelets 211. Electrolytes are within normal limits. Bicarbonate 20 (with normal anion gap). Renal function function is within normal limits. Total bilirubin is slightly elevated to 1.7, but normal AST and ALT. Cardiac enzymes-troponin 2 are within normal limits. D-dimer was slightly elevated to 469. A-fib Patient was diagnosed with A-fib in 2005, she is being followed by Dr. Foster. She was placed on Cardizem but has been noncompliant with her medication. During her hospital stay she was given Metoprolol 5mg IVP, Cardizem 20mg IVP and later switched to Cardizem 120mg TID then to 180mg BID, with a goal HR<110. Her HR was in A-fib with RVR, EF 40, Digoxin 0.25mg PO with a loading dose 0.5mg was initiated. HAN Direct Cardioversion was done on 05/19/17. No complications. NSR, HR maintained <110. She was being AC with IV Heparin for 2 days then switched to Eliquis 5mg BID for stroke prophylaxis. Possible COPD exacerbation Formal diagnosis of COPD was never made. Patient is a current smoker, [facility] nebs, Methypredisolone IV were administered on room air. Steroids were later switched to Prednisone which is currently being tapered. Azithromycin 250mg QD was also given for 5 days, patient currently on DAY 5 of 5. Patient has completed her antibiotic course. Patient will go home with the remaining prednisone 10 mg tapered dose x 1 day. Alcohol use Patient alcohol level was 70mg/dl upon admission, CIWA protocol and Ativan PRN was initiated. Patient was advised to refrain from alcohol use. Anxiety Patient was diagnosed with anxiety which is currently being managed with Alprazolam 1 mg during her hospital stay she was given Alprazolam 0.5mg BID PRN. DVT prophylaxis Patient received IV heparin for 2 days then later switched to Eliquis 5mg BID. FULL CODE Allergies: Coded Allergies: NO KNOWN ALLERGIES (05/16/17) Significant Procedures: HAN Direct Cardioversion- 05/19/17. No complications. NSR, HR maintains <110 Pertinent Lab Results: 05/16/17-1643 CTA CHEST-PULMONARY EMBOLISM IMPRESSION: 1. No evidence of pulmonary embolism. 2. There is an enlarged right hilar lymph node with other shotty under 1 cm short axis dimension mediastinal and left hilar nodes. Other smaller shotty nodes contain calcifications suggesting previous granulomatous exposure. 3. Small bilateral pleural effusions 4. Fusiform dilatation of the main pulmonary artery extending into the left main is etiology indeterminate. Echocardiogram is recommended on a nonurgent basis to further evaluate. 5. Probable post lumpectomy changes right breast, question history of breast cancer? ECHOCARDIOGRAM 05/18/17-1295 CONCLUSIONS 1. Moderately decreased EF of 40%. 2. Mild right atrial enlargement. 3. Moderate left atrial enlargement. 4. Moderate mitral regurgitation. 5. Mild tricuspid regurgitation. 6. Mild aortic regurgitation. 7. Mild pulmonic regurgitation. 8. Mild to moderate pulmonary hypertension. Disposition Summary Disposition Principal Diagnosis: A-fib with RVR Additional Diagnosis: Possible COPD Discharge Disposition: home or self care Discharge Instructions General Discharge Information Code Status: Full Code Patient's Diet: Regular Patient's Activity: As tolerated Follow-Up Instructions/Appts: Follow up with your PCP in 1-2 weeks and [address]. Rodríguez in 1 week. Medications at Discharge Discharge Medications: Continue taking these medications: Alprazolam (Alprazolam) 1 MG TABLET Qty = 120 Comments: Last Taken:05/20/17 Time:0700 Oxycodone HCl (Oxycodone HCl) 15 MG TABLET 15 Qty = 90 Comments: Last Taken:05/20/17 Time:1200 Albuterol Sulfate (Albuterol Sulfate) 0.63 MG/3 ML VIAL.NEB Qty = 300 Start taking the following new medications: Prednisone (Prednisone) 10 MG TABLET 1 Tablet ORAL See Instructions Qty = 1 No Refills Instructions: take 1tab on 05/21 Comments: Last Taken:05/20/17 Time:1000 Apixaban (Eliquis) 5 MG TABLET 1 Tablet ORAL TWICE DAILY Qty = 60 No Refills Comments: Last Taken:05/20/17 Time:1000 Digoxin (Digoxin) 250 MCG TABLET 1 Tablet ORAL DAILY Qty = 30 No Refills Comments: Last Taken:05/19/17 Time:1500 Diltiazem HCl (Diltiazem 12HR ER) 90 MG CAP.ER.12H 2 Tablet ORAL TWICE DAILY Qty = 120 No Refills Comments: Last Taken:05/20/17 Time:1000 Copies To: MARCOS AQUINO PhD,JAMES Reardon Disposition Principal Diagnosis: A-fib with RVR Additional Diagnosis: Possible COPD Discharge Disposition: home or self care Discharge Instructions General Discharge Information Code Status: Full Code Patient's Diet: Regular Patient's Activity: As tolerated Follow-Up Instructions/Appts: Follow up with your PCP in 1-2 weeks [address] Rodríguez in 1 week. Medications at Discharge Discharge Medications: Continue taking these medications: Alprazolam (Alprazolam) 1 MG TABLET Qty = 120 Comments: Last Taken:05/20/17 Time:0700 Oxycodone HCl (Oxycodone HCl) 15 MG TABLET 15 Qty = 90 Comments: Last Taken:05/20/17 Time:1200 Albuterol Sulfate (Albuterol Sulfate) 0.63 MG/3 ML VIAL.NEB Qty = 300 Start taking the following new medications: Prednisone (Prednisone) 10 MG TABLET 1 Tablet ORAL See Instructions Qty = 1 No Refills Instructions: take 1tab on 05/21 Comments: Last Taken:05/20/17 Time:1000 Apixaban (Eliquis) 5 MG TABLET 1 Tablet ORAL TWICE DAILY Qty = 60 No Refills Comments: Last Taken:05/20/17 Time:1000 Digoxin (Digoxin) 250 MCG TABLET 1 Tablet ORAL DAILY Qty = 30 No Refills Comments: Last Taken:05/19/17 Time:1500 Diltiazem HCl (Diltiazem 12HR ER) 90 MG CAP.ER.12H 2 Tablet ORAL TWICE DAILY Qty = 120 No Refills Comments: Last Taken:05/20/17 Time:1000 Copies To: MARCOS AQUINO PhD,JAMES fung is etiology indeterminate. Echocardiogram is recommended on a nonurgent basis to further evaluate. 5. Probable post lumpectomy changes right breast, question history of breast cancer? Assessment/Plan Assessment: She is a middle-aged woman, who was recently diagnosed with paroxysmal atrial fibrillation and has discontinued taking medications is being evaluated for shortness of breath and chest pain. At the time of admission, vitals-temperature 97.3, pulse rate 160, respiration 24, blood pressure 148/71, pulse ox 97% on 2 L oxygen. The findings indicated no leukocytosis-WBC 8.8, hemoglobin 16.0 (likely dehydration or COPD), platelets 211. Electrolytes are within normal limits. Bicarbonate 20 (with normal anion gap). Renal function function is within normal limits. Total bilirubin is slightly elevated to 1.7, but normal AST and ALT. Cardiac enzymes-troponin 2 are within normal limits. D-dimer was slightly elevated to 469. Subsequent evaluation with a CAT scan chest-revealed no evidence of pulmonary embolism, but revealed fusiform dilatation of main pulmonary artery ( significance unknown, but could likely be due to elevated right ventricle pressures). EKG revealed atrial fibrillation, elevated RVR, normal axis, no ST- T wave abnormalities. No recent echocardiogram was found on the system. Differential diagnoses: #1 A. fib with RVR #2 acute exacerbation of COPD #3 acute coronary syndrome #4 alcohol detox #5 chronic pain Below is the problem list and plan: #1 shortness of breath, tachycardia-likely due to paroxysmal atrial fibrillation. As per the patient, she is not on any Cardizem for a while which must have brought on this episode. Rate control with IV Cardizem, and start by mouth concomitantly to be able to transition into by mouth at the time of discharge. Tachycardia, may have resulted in possible decompensated heart failure. Elevated proBNP, reflect heart strain. One-time dose of intravenous Lasix as per Cardiology. Echocardiogram to be obtained. Anticoagulation with intravenous heparin, with the transition to direct oral anticoagulant in the a.m. Please discuss with the patient and the lead case manager, to be sure that it is covered by the insurance company. To follow up with the employer relations representative as an outpatient. TSH within normal limits. #2 chest pain-ACS and also pulmonary embolism in the differential. CT was negative. Serial electrocardiograms and cardiac enzymes to be obtained. Aspirin, and a beta john administered. #3 ? COPD-no formal diagnosis of COPD ever made. History of smoking. Physical findings, and history of smoking likely indicate that the patient may have COPD exacerbation at this time. TRC nebs, IV Solu-Medrol, azithromycin. Oxygen saturation was not measured at the time of admission on room air. Check ambulatory sats as the patient improves. #4 alcohol use-monitor the patient using CIWA protocol. Ativan as needed. If the patient appears to need Ativan, please schedule Ativan dose. Patient reported use of alcohol before ED admission, and hence serum alcohol was elevated. Check urine toxicology. #5-pain management-continue home dose of oxycodone. #6 decreased bicarbonate-unclear etiology. Check ABG, if mentation changes. #7 DVT prophylaxis-IV heparin. #8 pain lower extremity-Given history of smoking, peripheral vascular disease is not completely ruled out. Outpatient evaluation with a vascular surgeon could be obtained. As Ranked By This Provider Problem List: 1. Chest pain 2. COPD (chronic obstructive pulmonary disease) 3. Rapid atrial fibrillation Core Measures/Miscellaneous Acute Coronary Syndrome ACS Diagnosis: No Cerebrovascular Accident CVA/TIA Diagnosis: No Congestive Heart Failure CHF Diagnosis: No VTE (View Protocol) VTE Risk Factors: Acute medical illness, Age > 40 [facility] prophylaxis d/t: No contraindications No VTE Pharm Prophylaxis d/t: No contraindications VTE Diagnosis: No Sepsis (View Protocol) Severe Sepsis Present: No Septic Shock Septic Shock Present: No Miscellaneous Documentation Attending Case Discussed With: ALMA BARTHOLOMEW MD Primary Care Physician: PATIENT HAS NO PRIMARY CARE DR Patient sees these Specialists Dr. Diaz Level of Patient Care: Telemetry QIANA GRIFFIN 05/17/17 0249: General Information and HPI Allergies/Medications Home Med list Albuterol Sulfate 0.63 MG/3 ML VIAL.NEB BREATHING PROBLEMS (Reported) Alprazolam 1 MG TABLET ANXIETY (Reported) Oxycodone HCl 15 MG TABLET 15 PAIN CONTROL (Reported) Resident Review Statement Resident Statement: examined this patient, discussed with digital media intern, agreed with digital media intern Other Findings: Patient is a 51-year-old woman with a past medical history significant for anxiety and depressive disorder, chronic back pain, recently diagnosed with atrial fibrillation on chronic anticoagulations presented to the ED for the evaluation of worsening exertional chest discomfort with shortness of breath for the last 4 days. Patient was diagnosed with atrial fibrillation at [facility] about 7 months ago and was prescribed Cardizem by mouth and aspirin daily, however patient had not been compliant with her medications. She stopped taking Cardizem a month ago as he thought that her worsening shortness of breath is because of the side effect of the medication. Also was not compliant with taking aspirin. Patient denied any nausea or vomiting sweating/palpitations denied any dizziness or lightheadedness denied any urinary bowel complaints. Patient is a current every day smoker does not drink. Vitals on admission admission temperature 97.3, pulse 160, respiratory rate 824, blood pressure 148/71 on room air ED course: General Appearance: Alert, mild Distress Skin: Grossly normal HEENT: PEERLA Neck: Supple, No JVD Cardiovascular: Regular Rate, Normal S1, Normal S2, No Murmurs Lungs: Clear to Auscultation, with some crackles Abdomen: Normal Bowel Sounds, Soft, No Tenderness Neurological: Normal Speech, Strength at 5/5 X4 Ext, Cranial Nerves 3-12 NL, Reflexes 2+ Extremities: Normal extremities. Vascular: Normal Pulses. Pertinent labs and admission: Normal WBC origin stable elevated d-dimer 469, elevated proBNP Assessment This is a 51-year-old woman with past medical history significant for smoking, anxiety and depressive disorder, chronic back pain, recently diagnosed atrial fibrillation noncompliant with her medications presented to the ED for evaluation of exertional chest discomfort with shortness of breath. In the ED patient was found to be in A. fib with RVR heart rate was 160s, she was given IV Cardizem push 10 mg twice and was started on Cardizem drip. Problem list Atrial fibrillation with RVR (probably due to noncompliance) with exertional shortness of breath(rule out ACS) History of anxiety and depression History of chronic back pain Current every day smoker Plan Atrial fibrillation with RVR (probably due to noncompliance) with exertional shortness of breath(rule out ACS) * We'll admit the patient to telemetry floor * Continue with IV Cardizem drip for rate control and titrate the drip accordingly to keep the heart rate below 110. * Patient was evaluated by Dr. Rodríguez in the ED recommended, to give another push of 20 mg of IV Cardizem push and to start the patient on by mouth Cardizem 120 mg twice a day, IV metoprolol pushes 5 mg as needed, to keep heart rate below 110. * We'll start the patient on IV heparin and possible transition to xeralto in morning * Obtain echocardiogram to rule out any valvular wall motion abnormalities. * We will do serial troponins and EKGs were brought in underlying ACS. * Elevated proBNP, patient might have decompensated heart failure in the setting of persistent A. fib, patient was given 1 time dose of IV Lasix 20 mg in the ED as per cardiology recommendations. * Check thyroid function levels. * Patient has been counseled regarding medication compliance in detail. 2. Acute hypoxic respiratory failure due to possible undiagnosed COPD exacerbation- Shortness of breath with history of heavy smoking: * CTA was done in the ED that ruled out any underlying PE * Check ABG. * Continue TRC nebs. * We'll start the patient on IV Solu-Medrol 40 mg twice a day for possible underlying undiagnosed COPD exacerbation. * Patient should have PFTs as an outpatient for formal workup of COPD 3. History of anxietynot any and depression * Continue medications including Lexapro 4 History of chronic back pain * continue medications oxycodone 5 Current every day smoker * Smoking cessation counselling has been done . * Consider Nicotine patch. 6 History of alcohol abuse * We'll start the patient on Ativan as per CIWA protocol * Give one dose of IV thiamine 200 mg once. * Check urine toxicology and serum alcohol levels Pain pathway DVT prophylaxis with Lovenox Patient is full code. ALMA BARTHOLOMEW 05/17/17 0604: Attending MD Review Statement Attending Statement Attending MD Statement: examined this patient, discuss w/resident/PA/FOOD PRESERVATION SCIENTIST, agreed w/resident/PA/FOOD PRESERVATION SCIENTIST, reviewed EMR data (avail), reviewed images, amended to note Attending Assessment/Plan: CC: Shortness of breath since 4 days PMH: COPD, breast cancer S/P lumpectomy and radiation, anxiety depression, back pain, A. fib diagnosed 7 months back Patient came to ER with 4 days history of shortness of breath, dyspnea on exertion, exertional chest pain, worsening gradually. Has chills but denies fever, one episode of vomiting. Denies pleuritic chest pain. Patient was in [facility] 7 months back, was found to have A. fib and was discharged on by mouth Cardizem and aspirin patient followed up with Dr. Edwin Cameron but who also did transthoracic echocardiogram, she is unaware of any history of heart failure. Patient stopped taking Cardizem because of worsening shortness of breath. She had stress test 2 years back which gave her severe bronchospasm according to her description. She is current smoker. Vitals: Afebrile, HR in 160s, RR 18, blood pressure 161/93, saturating 98% on 2 L nasal cannula On exam: A O 3, cooperative, moderate respiratory distress, accessory muscles in use, neck supple, JVD normal, no lymphadenopathy, mucosa moist, no focal neurological deficit, no dependent edema, no obvious skin rashes or inflammation CVS: S1-S2, tachycardia. RS: Diffuse wheezing with prolonged expiration, decreased air entry bilaterally basis. Abdomen: Soft, NT, ND, bowel sounds present. Peripheral pulses perfusion normal Labs: CBC unremarkable, sodium 136, potassium 4.5, chloride 104, bicarbonate 20, BUN 11, creatinine 0.6, anion gap 11, glucose 108, bilirubin 1.7, AST 51, ALT 63 , proBNP 3390, troponin less than 0.01, TSH 2.16, d-dimer 469, serum alcohol 70. CXR: No acute abnormality CTA: 1. No evidence of pulmonary embolism. 2. There is an enlarged right hilar lymph node with other shotty under 1 cm short axis dimension mediastinal and left hilar nodes. Other smaller shotty nodes contain calcifications suggesting previous granulomatous exposure. 3. Small bilateral pleural effusions 4. Fusiform dilatation of the main pulmonary artery extending into the left main is etiology indeterminate. Echocardiogram is recommended on a nonurgent basis to further evaluate. 5. Probable post lumpectomy changes right breast, question history of breast cancer? EKG: A. fib with RVR A and P 51-year-old female with extensive smoking history and anxiety depression, breast cancer S/P lumpectomy and radiation, and recently diagnosed A. fib noncompliance with Cardizem and aspirin, presented in ER with progressive worsening of shortness of breath since 4 days, dyspnea on exertion, on and off leg edema. Patient had been using her inhalers at least 4 times a day for shortness of breath without much relief. Patient was found to have A. fib with RVR in ER, hemodynamically stable received IV Cardizem and was started on Cardizem drip and heparin drip. She is also has extensive wheezing on bilateral lung stephens on pulmonary auscultation. Denies any productive cough and imaging negative for pneumonia. + A. fib with RVR + COPD exacerbation + Hilar lymphadenopathy + History of anxiety and depression + History of breast cancer S/P lumpectomy and radiation - Admit to telemetry - Continuous telemetry monitoring - Serial EKGs and troponin - Continue Cardizem drip, heparin drip - 1 dose of IV Lasix as suggested by cardiology - Check proBNP - 2-D echo - Continue IV Solu-Medrol 40 mg twice a day - Azithromycin IV daily - U tox - Scheduled and when necessary Ativan according to CIWA score - Continue TRC nebs with albuterol and ipratropium scheduled and when necessary - Outpatient pulmonary consult for PFT and hilar lymphadenopathy - Adequate pain control - Consult regarding smoking cessation, patient needs PCP to follow up outpatient. Allergies: Coded Allergies: NO KNOWN ALLERGIES (05/16/17) Significant Procedures: 05/16/17-1643 CTA CHEST-PULMONARY EMBOLISM FINDINGS: QUALITY OF STUDY/CONTRAST BOLUS: Satisfactory. PULMONARY ARTERIES: Pulmonary arterial tree is well-opacified without filling defects to suggest pulmonary emboli. Main pulmonary artery is dilated up to 4.4 cm in cross-section at the level of the ascending aorta. This extends into the left main pulmonary artery, right pulmonary artery does not appear significantly dilated findings are indeterminate in etiology. Question asymmetric pulmonary hypertension? THORACIC AORTA: There is no dissection or aneurysm. LUNG:There is appearing pulmonary nodules are identified to suggest primary malignancy or metastatic disease. No focal infiltrates are seen. PLEURA: There are small bilateral pleural effusions. With subsegmental basilar atelectasis. MEDIASTINUM: There is a small node identified in the right hilum measuring 2.4 x 1.6 cm age and etiology indeterminate. In addition, there are scattered small mediastinal lymph nodes, some of which demonstrates some calcifications the largest in the subcarinal region measuring 11 mm AP dimension. These are nonspecific. A small amount of lymphoid tissue is identified in the left hilum. Findings are age and etiology indeterminate and could be related to previous granulomatous exposure given some of the calcifications associated near or within these nodes. The main pulmonary artery is dilated measuring 4cm in transverse dimension at the level of the ascending aorta. Findings suggest underlying pulmonary artery hypertension. Findings are somewhat asymmetrically involving the left pulmonary artery rather than right. CHEST WALL/AXILLA: Right breast is smaller than the left suggesting a previous lumpectomy and a history of breast cancer. There is no axillary adenopathy. OSSEOUS STRUCTURES: No aggressive appearing osseous lesions are identified to suggest metastatic disease. UPPER ABDOMEN: Unremarkable. IMPRESSION: 1. No evidence of pulmonary embolism. 2. There is an enlarged right hilar lymph node with other shotty under 1 cm short axis dimension mediastinal and left hilar nodes. Other smaller shotty nodes contain calcifications suggesting previous granulomatous exposure. 3. Small bilateral pleural effusions 4. Fusiform dilatation of the main pulmonary artery extending into the left main is etiology indeterminate. Echocardiogram is recommended on a nonurgent basis to further evaluate. 5. Probable post lumpectomy changes right breast, question history of breast cancer? ECHOCARDIOGRAM 05/18/17 FINDINGS Left Ventricle Mildly enlarged left ventricle with normal wall thickness. Moderately decreased systolic function with global hypokinesis. The ejection fraction is visually estimated at 40%. Right Ventricle The right ventricle is normal in size and function. Right Atrium The right atrium is mildly enlarged. Left Atrium The left atrium is moderately enlarged. The interatrial septum is intact. Mitral Valve The mitral valve is normal in structure and function. There is moderate mitral regurgitation. Aortic Valve Structurally normal aortic valve without significant sclerosis or stenosis. There is mild aortic regurgitation. Tricuspid Valve The tricuspid valve is normal in structure and function. There is mild tricuspid regurgitation. Pulmonary artery systolic pressure is mildly elevated to 45.8mmHg. Pulmonic Valve Structurally normal pulmonic valve. There is mild pulmonic regurgitation. Pericardium Normal pericardium with small effusion. No pleural effusion. Great Vessels Normal aortic root dimension. The aortic arch and great vessels are well seen and are normal. CONCLUSIONS 1. Moderately decreased EF of 40%. 2. Mild right atrial enlargement. 3. Moderate left atrial enlargement. 4. Moderate mitral regurgitation. 5. Mild tricuspid regurgitation. 6. Mild aortic regurgitation. 7. Mild pulmonic regurgitation. 8. Mild to moderate pulmonary hypertension. Disposition Summary Disposition Principal Diagnosis: A-fib with RVR Additional Diagnosis: Possible COPD Discharge Disposition: home or self care Discharge Instructions General Discharge Information Code Status: Full Code Patient's Diet: Regular Patient's Activity: As tolerated Follow-Up Instructions/Appts: Follow up with your PCP in 1-2weeks and Jewelry Designer in 1 week. Medications at Discharge Discharge Medications: Continue taking these medications: Alprazolam (Alprazolam) 1 MG TABLET Qty = 120 Oxycodone HCl (Oxycodone HCl) 15 MG TABLET 15 Qty = 90 Albuterol Sulfate (Albuterol Sulfate) 0.63 MG/3 ML VIAL.NEB Qty = 300 Start taking the following new medications: Diltiazem HCl (Cardizem) 60 MG TABLET 120 Milligram ORAL EVERY 8 HOURS Qty = 60 No Refills Apixaban (Eliquis) 5 MG TABLET 1 Tablet ORAL TWICE DAILY Qty = 60 No Refills Azithromycin (Azithromycin) 250 MG TABLET 1 Tablet ORAL GIVE ONCE Qty = 1 No Refills Prednisone (Prednisone) 10 MG TABLET 1 Tablet ORAL See Instructions Qty = 3 No Refills Instructions: take 2tabs on 05/20 take 1tab on 05/21 Copies To: PUMA AQUINO,BRANDON RODRÍGUEZ MD PhD,JAMES Reardon
--- NOTE | 2017-05-19 09:30 | PN- Cardiology ---
Subjective Subjective: * Patient continues to be mildly short of breath with mild palpitations. No chest pain. * atrial fibrillation with rapid heart rate * Echo shows a moderately reduced EF of about 40% with moderate MR, mild TR, AI and PI and mild to moderate pulmonary hypertension. Objective Vital Signs and I&Os Vital Signs Date Time Temp Pulse Resp B/P B/P Pulse O2 O2 Flow FiO2 Mean Ox Delivery Rate 05/19 0841 128 / 0545 114 124/72 / 0000 Room Air 05/18 2200 97.5 122 24 124/82 98 Room Air 05/18 2113 122 124/82 / 2032 98 Room Air Room Air 05/18 1800 120 / 1600 97.5 95 23 118/83 / 1600 97 Room Air 05/18 1502 97.5 95 20 118/83 97 Room Air 05/18 1458 95 118/83 / 1400 88 / 1223 97 Room Air 05/18 1200 93 / 1000 98 Intake & Output 05/19 1600 05/19 0800 05/19 0000 05/18 1600 05/18 0800 05/18 0000 Intake Total 250 650 152 200 600 Output Total Balance 250 650 152 200 600 Intake, IV 0 0 152 Intake, Oral 250 650 200 600 Number 0 0 Bowel Movements Physical Exam: General: WD/ WN female in NAD; alert and oriented x 3 HEENT: NC/AT, PERRL, EOMI, clear oropharynx with mmm Neck: no JVD, no carotid bruit Heart: irregularly irregular and tachycardic without mumur Lungs: clear bilaterally Chest: right breast surgery Abdomen: soft, NT, +ve bowel sounds Extremities: no edema Assessment/Plan Assessment/Plan * This patient has a decreased EF of about 40% that is likely multifactorial and due to a combination of alcohol, tahcycardia due to atrial fibrillation and possibly coronary artery disease. In consideration of her current lack of chest pain, ischemic ECG changes and due to the absence of troponin I think that the former two are the main issues. * This patient has atrial fibrillation with rapid rate of presumed long duration. Her heart rate likely has been elevated for quite some time due to her stopping her Cardizem. We will add digoxin 0.25mg daily after a 0.5mg loading dose. Keep patient NPO except for medications and we will try to pursue a DC cardioversion if there is no thrombus. For now continue Cardizem but change to 180mg BID. Continue Eliquis for stroke prophylaxis. * This patient may have atrial fibrillation that is elicited by alcohol. Follow a CIWA protocol. * Monitor respiratory status with PRN albuterol Continue telemetry? Yes
--- NOTE | 2017-05-19 10:32 | PN- Att Addend ---
Attending Addendum Attending Brief Note Patient seen and examined. Plan of care discussed with the medical team and the patient. Available lab work and radiology test reports were reviewed. Patient appears anxious but denies any fever or chills. Overall she feels better than yesterday. She denies any chest pain today. hospital monitor shows heart rate of 130 with A. fib. Vital Signs Date Time Temp Pulse Resp B/P B/P Pulse O2 O2 Flow FiO2 Mean Ox Delivery Rate 05/19 1025 96 Room Air Room Air 05/19 0841 128 05/19 0545 114 124/72 05/19 0000 Room Air 05/18 2200 97.5 122 24 124/82 98 Room Air 05/18 2113 122 124/82 05/18 2032 98 Room Air Room Air 05/18 1800 120 05/18 1600 97.5 95 23 118/83 05/18 1600 97 Room Air 05/18 1502 97.5 95 20 118/83 97 Room Air 05/18 1458 95 118/83 05/18 1400 88 / 1223 97 Room Air 05/18 1200 93 Intake & Output 05/19 1600 05/19 0800 05/19 0000 Intake Total 250 650 Output Total Balance 250 650 Intake, IV 0 0 Intake, Oral 250 650 Number 0 0 Bowel Movements Exam: General: Patient awake alert oriented without any distress but anxious CVS: S1 plus S2 without any murmur or gallops Chest: Few scattered crepitation without any wheeze. There is no respiratory distress. 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 Echo 1. Moderately decreased EF of 40%. 2. Mild right atrial enlargement. 3. Moderate left atrial enlargement. 4. Moderate mitral regurgitation. 5. Mild tricuspid regurgitation. 6. Mild aortic regurgitation. 7. Mild pulmonic regurgitation. 8. Mild to moderate pulmonary hypertension. Assessment * Rapid A. fib still uncontrolled * Underlying COPD * Active smoking * Elevated WBC count likely due to steroids * Mild hyponatremia improved * Abnormal LFTs * Elevated bilirubin Plan * Continue oral Cardizem 180 twice a day * Case discussed with the current allergy Dr. Smith; plan for DC cardioversion ; patient may need a HAN to rule out atrial thrombus before cardioversion. * Cardio myopathy possibly related to persistent tachycardia, alkaline abuse or underlying ischemia due to coronary heart disease * Continue eliquis * Continue azithromycin by mouth for total of 5 days * Continue prednisone taper * CIWA protocol * Continue Nicotine patch * Increase ambulation * Taper oxygen as tolerated
--- NOTE | 2017-05-19 11:52 | PN- Housestaff ---
Subjective Follow-up For: SOB for 4 days Possible COPD exacerbation Tele-Events Since Last Visit: A-fib HR 105-129 Review of Systems Constitutional: Reports: see HPI. Objective Last 24 Hrs of Vital Signs/I&O Vital Signs Date Time Temp Pulse Resp B/P B/P Pulse O2 O2 Flow FiO2 Mean Ox Delivery Rate 05/19 1048 124/78 05/19 1047 124/78 05/19 1025 96 Room Air Room Air 05/19 0841 128 /03 0545 114 124/72 / 0000 Room Air 05/18 2200 97.5 122 24 124/82 98 Room Air 07/ 2113 122 124/82 / 2032 98 Room Air Room Air / 1800 120 07/02 1600 97.5 95 23 118/83 07/02 1600 97 Room Air / 1502 97.5 95 20 118/83 97 Room Air / 1458 95 118/83 / 1400 88 /02 1223 97 Room Air / 1200 93 Intake & Output 05/19 1600 05/19 0800 05/19 0000 Intake Total 250 650 Output Total Balance 250 650 Intake, IV 0 0 Intake, Oral 250 650 Number 0 0 Bowel Movements Physical Exam General Appearance: Alert, Oriented X3, Cooperative, No Acute Distress Cardiovascular: Normal S1, Normal S2 Lungs: Normal Air Movement Orders CIWA Score (last 24 hrs): 0 Assessment/Plan Assessment: MS. LIU IS A 51YO F WITH PMH OF A-FIB, COPD, ANXIETY. CURRENTLY NONCOMPLIANT WITH CARDIZEM AND ASA. PRESENTED TO ED WITH SOB X 4 DAYS AND CHEST DISCOMFORT. #1. A-FIB Patient was diagnosed with A-FIB in 2016. She was sent home on cardiazem and ASA. Patient was noncompliant with Cardizem because she felt it exacerbated her SOB. She is currently being admitted for SOB. ECG in ED showed A-FIB with RVR- 160. Received IV Cardizem and IVP Metoprolol, HR came down to 130. * TELE FOR FURTHER MGMT OF A-FIB * Start Digoxin 0.5mg loading dose, 0.25mg QD * Cardioversion * NPO * GOAL HR 100-110 * Continue AC-ELIQUIS #2 Chest pain ACS and also pulmonary embolism in the differential. CT was negative. Serial electrocardiograms and cardiac enzymes negative. Aspirin, and a beta john administered. #3 ? COPD No formal diagnosis of COPD ever made. History of smoking. Physical findings, and history of smoking likely indicate that the patient may have COPD exacerbation at this time. 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 * Ativan PRN. #5. Pain management * Continue home dose of oxycodone. #6. DVT prophylaxis * ELIQUIS 5mg BID #7. Pain lower extremity * Given history of smoking, peripheral vascular disease is not completely ruled out. Outpatient evaluation with a vascular surgeon could be obtained. Problem List: 1. Chest pain Pain Ratin Pain Location: N/A Pain Goal: Remain pain free Pain Plan: tylenol oxycodone Tomorrow's Labs & Rationales: None Consulting Request: Consulting Specialty: Cardiology
[2017-05-19 14:33] VITALS: BP 118/62
--- NOTE | 2017-05-19 18:32 | Operative Report ---
Operative/Inv Procedure Report Surgery Date: 05/19/17 Name of Procedure: HAN directed cardioversion Pre-Operative Diagnosis: Atrial fibrillation Post-Operative Diagnosis: Sinus rhythm Estimated Blood Loss: n/a Surgeon/Chef De Froid: Hannah Dykes M.D. Anesthesia: local monitored anesthesi Complications: None Operative/Procedure Note Note: The patient is a 52-year-old female with persistent atrial fibrillation and medication noncompliance. She presented to the hospital in congestive heart failure and with rapid atrial fibrillation. Her heart failure has improved and her atrial fibrillation rate is now controlled. She has been anticoagulated. 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 The patient agreed to the procedure. She was brought to the procedure room in the fasting state. Time out was taken and all agreed with the proposed procedures and the patient signed consent. The patient was sedated per usual protocol by anesthesia provider. When she was adequately sedated the transesophageal probe was placed in the esophagus and full imaging took place. The left atrial appendage was clean and it was decided to proceed with cardioversion. Pads had already been placed anteriorly and posteriorly and through the pads a 200 J synchronized biphasic shock was administered while she was still under deep sedation. She converted immediately to sinus rhythm. She was then allowed to awaken and remained in sinus rhythm while in the procedure room. She was returned to the floor awake and alert and in sinus rhythm. There were no complications of the procedures. CC: MARCOS AQUINO PhD,HANNAH Reardon
--- NOTE | 2017-05-19 18:52 | ECHOCARDIOGRAM REPORT ---
NISREEN ACEVEDO Age: 52 : Gender: F Exam Date: 05/19/2017 16:09 Exam Location: 1 [address] Ht (in): 64 Wt (lb): 169 BSA: 1.88 BP: 118 / 72 Ordering Physician: MACIEJ RUBIO M Referring Physician: James Dykes MD Chief, SoC Technologist: Rozina Kirkpatrick [facility] Room Number: 175 Indications: AFIB/FLUTTER Rhythm: Atrial fibrillation Technical Quality: Good Medications Ease of Transducer Insertion Minor Difficulty Complications None. Technical Difficulty None FINDINGS Left Ventricle Mild to moederately reduced left ventricular systolic function. Right Ventricle Normal right ventricular size and function. Right Atrium Mild right atrial dilatation. Left Atrium Mild left atrial dilatation. LA Appendage Normal left atrial appendage. IA Septum Normal interatrial septum. No obvious shunting by color flow imaging. Mitral Valve Mitral valve normal in structure and function. Moderate mitral regurgitation. Aortic Valve Focal thickening of the aortic valve cusps. Mild aortic regurgitation. Tricuspid Valve Tricuspid valve is normal in structure and function. Mild-to- moderate tricuspid regurgitation. Pulmonic Valve Pulmonic valve not well visualized, grossly normal. Pericardium No pericardial or pleural effusion. Great Vessels Gr 1 placquing of the descending aortz. CONCLUSIONS Mild to moderately reduced left ventricular systolic function. Mild right atrial dilatation. Mild left atrial dilatation. Normal left atrial appendage with no obvious thrombus material. Normal interatrial septum. No obvious shunting by color flow imaging. Moderate mitral regurgitation. Focal thickening of the aortic valve cusps. Mild aortic regurgitation. Rspi-xi-[id number] tricuspid regurgitation. Gr 1 placquing of the descending aortz. James Dykes M.D. (Electronically Signed) Final Date: 19 May 2017 18:51 MEASUREMENTS (Male / Female) Normal Values
[2017-05-19 22:00] VITALS: BP 100/80
[2017-05-20 06:41] VITALS: BP 112/90
--- NOTE | 2017-05-20 08:16 | PN- Housestaff ---
Subjective Follow-up For: A-fib SOB Possible COPD exacerbation Tele-Events Since Last Visit: NSR HR 64-80 PVC Subjective: Patient is postop DAY 1 from TTE direct cardioversion. She reports no complaints. No overnight events. Review of Systems Constitutional: Reports: see HPI. Objective Last 24 Hrs of Vital Signs/I&O Vital Signs Date Time Temp Pulse Resp B/P B/P Pulse O2 O2 Flow FiO2 Mean Ox Delivery Rate 05/20 0804 84 / 0641 97.5 80 20 112/90 97 Room Air 07/ 2200 97.7 80 20 100/80 98 Room Air 07/ 2115 77 100/60 05/19 2019 99 Room Air 07/ 1800 78 07/03 1610 94 07/03 1541 108 07/03 1433 98.0 80 20 118/62 95 Room Air 07/ 1200 110 07/03 1156 106 07/03 1048 124/78 07/03 1047 124/78 07/03 1025 96 Room Air Room Air /03 1000 80 /03 0841 128 Intake & Output 05/20 1600 / 0800 / 0000 Intake Total 200 Output Total Balance 200 Intake, Oral 200 Physical Exam General Appearance: Alert, Oriented X3, Cooperative, No Acute Distress Cardiovascular: Normal S1, Normal S2 Lungs: Clear to Auscultation Current Medications: Current Medications Sig/Ekta Start time Last Medication Dose Route Stop Time Status Admin Acetaminophen 650 MG Q6P PRN 05/16 2300 AC PO Albuterol Sulfate 3 ML Q4P PRN 05/17 1015 AC 05/19 INH 1024 Alprazolam 0.5 MG BID PRN 05/18 0930 AC 05/20 PO 05/25 0929 0719 Apixaban 5 MG BID 05/18 1000 AC 05/19 PO 2115 Azithromycin 250 MG DAILY 05/16 2330 AC 05/19 PO 05/21 0100 0910 Bisacodyl 5 MG DAILY PRN 05/18 1230 AC 05/18 PO 1458 Digoxin 0.25 MG 1700 / 1700 AC PO Digoxin 0.25 MG 1700 / 1700 DC PO Digoxin 0.5 MG ONCE ONE 05/19 0945 DC 05/19 PO 05/19 0946 1047 Diltiazem HCl 180 MG BID 05/19 1000 AC 05/19 PO 2115 Diltiazem HCl 120 MG Q8 05/17 2000 DC 05/19 PO 0545 Lidocaine 0 .STK-MED ONE 05/19 1618 DC TOP Lorazepam 0 Q1P PRN 05/16 2300 AC IV Nicotine 21 MG DAILY@2200 05/18 2200 AC 05/19 TOP 2117 Oxycodone HCl 15 MG Q8P PRN 05/16 2300 AC 05/20 PO 0344 Prednisone 10 MG DAILY 05/21 1000 AC PO 05/21 1001 Prednisone 20 MG DAILY 05/20 1000 AC PO 05/20 1001 Prednisone 30 MG DAILY 05/19 1000 DC 05/19 PO 05/19 1001 0910 Lines/Diet/Fluids Lines: peripheral lines Assessment/Plan Assessment: MS. LIU IS A 51YO F WITH PMH OF A-FIB, COPD, ANXIETY. CURRENTLY NONCOMPLIANT WITH CARDIZEM AND ASA. PRESENTED TO ED WITH SOB X 4 DAYS AND CHEST DISCOMFORT. #1. A-FIB Patient was diagnosed with A-FIB in 2015. She was sent home on cardiazem and ASA. Patient was noncompliant with Cardizem because she felt it exacerbated her SOB. She is currently being admitted for SOB. ECG in ED showed A-FIB with RVR- 160. Received IV Cardizem and IVP Metoprolol, HR came down to 130. * Continue TELE * Continue Digoxin 0.5mg, will follow with Dr. Ahumada * Continue AC-ELIQUIS * Possible D/C today #2 Chest pain ACS and also pulmonary embolism in the differential. CT was negative. Serial electrocardiograms and cardiac enzymes negative. Aspirin, and a beta john administered. #3 ? COPD No formal diagnosis of COPD ever made. History of smoking. Physical findings, and history of smoking likely indicate that the patient may have COPD exacerbation at this time. 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 * Ativan PRN. #5. Pain management * Continue home dose of oxycodone. #6. DVT prophylaxis * ELIQUIS 5mg BID #7. Pain lower extremity * Given history of smoking, peripheral vascular disease is not completely ruled out. Outpatient evaluation with a vascular surgeon could be obtained. Problem List: 1. COPD (chronic obstructive pulmonary disease) 2. Chest pain Pain Ratin Pain Location: N/A Pain Goal: Remain pain free Pain Plan: N/A Tomorrow's Labs & Rationales: None Consulting Request: Consulting Specialty: Cardiology Discharge Plan Anticipated Discharge (Day): tomorrow
--- NOTE | 2017-05-20 09:39 | PN- Att Addend ---
Attending Addendum Attending Brief Note Patient seen and examined. Plan of care discussed with the medical team and the patient. Available lab work and radiology test reports were reviewed. Patient is status post a HAN and the cardioversion yesterday. She remains in sinus rhythm. Patient appears anxious but denies any fever or chills. Overall she feels better than yesterday. She denies any chest pain today. 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 Vital Signs Date Time Temp Pulse Resp B/P B/P Pulse O2 O2 Flow FiO2 Mean Ox Delivery Rate 05/20 0804 84 / 0641 97.5 80 20 112/90 97 Room Air 07 2200 97.7 80 20 100/80 98 Room Air 07 2115 77 100/60 05/19 2019 99 Room Air 05/19 1800 78 / 1610 94 / 1541 108 / 1433 98.0 80 20 118/62 95 Room Air 05/19 1200 110 /03 1156 106 / 1048 124/78 05/19 1047 124/78 05/19 1025 96 Room Air Room Air 05/19 1000 80 Intake & Output / 1600 /04 0800 07/04 0000 Intake Total 200 200 Output Total Balance 200 200 Intake, Oral 200 200 Exam: General: Patient awake alert oriented without any distress but anxious CVS: S1 plus S2 without any murmur or gallops Chest: Few scattered crepitation without any wheeze. There is no respiratory distress. 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 Mild right atrial dilatation. Mild left atrial dilatation. Normal left atrial appendage with no obvious thrombus material. Normal interatrial septum. No obvious shunting by color flow imaging. Moderate mitral regurgitation. Focal thickening of the aortic valve cusps. Mild aortic regurgitation. Urqj-ba-ljorbohu tricuspid regurgitation. Gr 1 placquing of the descending aorta. Assessment * Rapid A. 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 Total time spent in preparation for discharge plan, patient education, and CMR preparation was 35 minutes.
[2017-05-20 09:41] VITALS: BP 118/68
--- NOTE | 2017-05-20 11:57 | PN- Cardiology ---
Subjective Subjective: Feeling well. Sinus rhythm on telemetry. No chest pain. No palpitations. No shortness of breath. Objective Vital Signs and I&Os Vital Signs Date Time Temp Pulse Resp B/P B/P Pulse O2 O2 Flow FiO2 Mean Ox Delivery Rate 05/20 0941 76 118/68 05/20 0804 84 05/20 0641 97.5 80 20 112/90 97 Room Air 05/19 2200 97.7 80 20 100/80 98 Room Air 05/19 2115 77 100/60 05/19 2019 99 Room Air 05/19 1800 78 05/19 1610 94 05/19 1541 108 05/19 1433 98.0 80 20 118/62 95 Room Air 05/19 1200 110 05/19 1156 106 Intake & Output 05/20 1600 05/20 0800 05/20 0000 05/19 1600 05/19 0800 05/19 0000 Intake Total 200 200 200 250 650 Output Total Balance 200 200 200 250 650 Intake, IV 0 0 Intake, Oral 200 200 200 250 650 Number 0 0 Bowel Movements Patient 170 lb Weight Physical Exam: Gen: NAD HEENT: normal Lungs: clear to auscultation, normal resp. effort Heart: RRR, S1, S2, no murmurs Abdomen: Soft, nontender, no masses Extremities: No clubbing, cyanosis, or edema. Neuro: Alert and oriented x 3, cranial nerves intact throughout Current Medications: Current Medications Sig/Ekta Start time Last Medication Dose Route Stop Time Status Admin Acetaminophen 650 MG Q6P PRN 05/16 2300 AC PO Albuterol Sulfate 3 ML Q4P PRN 05/17 1015 AC 05/19 INH 1024 Alprazolam 0.5 MG BID PRN 05/18 0930 AC 05/20 PO 05/25 0929 0719 Apixaban 5 MG BID 05/18 1000 AC 05/20 PO 0941 Azithromycin 250 MG DAILY 05/16 2330 AC 05/20 PO 05/21 0100 0940 Bisacodyl 5 MG DAILY PRN 05/18 1230 AC 05/18 PO 1458 Digoxin 0.25 MG 1700 05/20 1700 AC PO Diltiazem HCl 180 MG BID 05/19 1000 AC 05/20 PO 0941 Lidocaine 0 .STK-MED ONE 05/19 1618 DC TOP Lorazepam 0 Q1P PRN 05/16 2300 AC IV Nicotine 21 MG DAILY@0 05/18 2200 AC 05/19 TOP 2117 Oxycodone HCl 15 MG Q8P PRN 05/16 2300 AC 05/20 PO 0344 Prednisone 10 MG DAILY 05/21 1000 AC PO 05/21 1001 Prednisone 20 MG DAILY 05/20 1000 DC 05/20 PO 05/20 1001 0940 Assessment/Plan Assessment/Plan Assessment: 1. Paroxysmal atrial fibrillation, currently in sinus rhythm status post HAN/ cardioversion 2. Left ventricular dysfunction, LVEF 40% Plan: * Continue current cardiac medications. * Clear for discharge to home from cardiac standpoint. * Follow up with Dr. Smith in one week. Continue telemetry? Yes
[2017-05-20] MEDS ORDERED: DIGOXIN250 MCG PO ×2 (12:03→12:13)
[2017-05-20] MEDS ORDERED: PREDNISONE10 M2 PO (12:12)
[2017-05-20] MEDS ORDERED: CARDIZEM60 M1 PO (12:12)
[2017-05-20] MEDS ORDERED: ELIQUIS5 M1 PO (12:18)
[2017-05-20] MEDS ORDERED: DILTIAZEM 12HR90 MG PO (13:21)
== END 2017-05-20 14:15 | DRG 201 ==
LOC: ERH 15:43 → 1NO 21:55 → ERHI 21:55 → ENRESERV 22:57 → 1NO 05-17 00:27
PROVIDERS: Internal Medicine Endocrinology, Diabetes & Metabolism; Physician Assistant; Student in an Organized Health Care Education/Training Program; ADMIT Internal Medicine
PROC: 5A2204Z Restoration of Cardiac Rhythm, Single (ICD-10-PCS; principal; 2017-05-19)
PROC: B24BZZ4 Ultrasonography of Heart with Aorta, Transesophageal (ICD-10-PCS; 2017-05-19)
DX: I48.1 Persistent atrial fibrillation (principal); J44.1 Chronic obstructive pulmonary disease with (acute) exacerbation; F17.210 Nicotine dependence, cigarettes, uncomplicated; Z72.89 Other problems related to lifestyle; E87.1 Hypo-osmolality and hyponatremia; Z85.3 Personal history of malignant neoplasm of breast; Z92.3 Personal history of irradiation; F41.9 Anxiety disorder, unspecified; F32.9 Major depressive disorder, single episode, unspecified; Z91.14 Patient's other noncompliance with medication regimen; I25.119 Atherosclerotic heart disease of native coronary artery with unspecified angina pectoris; I50.9 Heart failure, unspecified; G89.4 Chronic pain syndrome; I11.0 Hypertensive heart disease with heart failure; E78.5 Hyperlipidemia, unspecified; Z79.891 Long term (current) use of opiate analgesic; I49.3 Ventricular premature depolarization; I48.92 Unspecified atrial flutter; I42.8 Other cardiomyopathies; I27.2 Other secondary pulmonary hypertension; I34.0 Nonrheumatic mitral (valve) insufficiency; I36.1 Nonrheumatic tricuspid (valve) insufficiency; I35.1 Nonrheumatic aortic (valve) insufficiency; I37.1 Nonrheumatic pulmonary valve insufficiency
CPT/HCPCS: 1NP; ERO; 36415; 82436; 93005; 93010; 93306; 93325; 96374; 96375; 96376; 99291; G0480; J0456; J1644; J1940; J2920; J2930; J7512